=== PATIENT | female | born 1930 | race Caucasian/White ===

== ENCOUNTER → 2017-07-02 | Outpatient (CLI) | payer MEDICARE | END | disposition home or self-care (01) | LOC: PNCL 08:26 | DX: M79.604 Pain in right leg (principal); M25.551 Pain in right hip; M81.0 Age-related osteoporosis without current pathological fracture; R06.02 Shortness of breath; Z96.653 Presence of artificial knee joint, bilateral; Z79.01 Long term (current) use of anticoagulants; Z90.710 Acquired absence of both cervix and uterus | CPT/HCPCS: G0463 ==

== ENCOUNTER 2017-07-19 20:47 | Emergency (ER) | payer MEDICARE ==
[2017-07-19 21:49] LABS: ADD MAN DIFF? NO
[2017-07-19 21:52] LABS: BASO # 0.1 x10^3/uL (0.0-0.2); BASO % 1 % (0-3); EOS # 0.3 x10^3/uL (0.0-0.7); EOS % 2 % (0-3); HEMATOCRIT 33.8 % (36.0-47.0); LYMPH # 2.3 x10^3/uL (1.0-4.8); LYMPH % 17 % (24-48); MEAN CORPUSCULAR HEMOGLOBIN 25 pg (25-35); MEAN CORPUSCULAR HGB CONC 33 g/dL (31-37); MEAN CORPUSCULAR VOLUME 78 fL (79-100); MONO # 0.7 x10^3/uL (0.0-1.1); MONO % 5 % (0-9); NEUT # 10.2 x10^3uL (1.8-7.7); NEUT % 75 % (31-73); PLATELET COUNT 223 x10^3/uL (140-400); RED BLOOD COUNT 4.33 x10^6/uL (3.50-5.40); WHITE BLOOD COUNT 13.5 x10^3/uL (4.0-11.0)
[2017-07-19 22:00] LABS: INR 1.1 (0.8-1.1); PROTHROMBIN TIME PATIENT 13.7 SEC (11.7-14.0)
[2017-07-19 22:02] LABS: ANION GAP 9 (6-14); BLOOD UREA NITROGEN 13 mg/dL (7-20); BUN/CREATININE RATIO 13 (6-20); CALCIUM 9.2 mg/dL (8.5-10.1); CARBON DIOXIDE 28 mmol/L (21-32); CHLORIDE 102 mmol/L (98-107); GFR 52.7; GLUCOSE 112 mg/dL (70-99); POTASSIUM 3.6 mmol/L (3.5-5.1); SODIUM 139 mmol/L (136-145)
[2017-07-19 22:04] LABS: D-DIMER 0.31 ug/mlFEU (0.00-0.50)
[2017-07-19 22:07] LABS: ALBUMIN 3.4 g/dL (3.4-5.0); ALK PHOS 73 U/L (46-116); ALT (SGPT) 18 U/L (14-59); AST (SGOT) 16 U/L (15-37); LIPASE 92 U/L (73-393); MAGNESIUM 2.1 mg/dL (1.8-2.4); TOTAL BILIRUBIN 0.5 mg/dL (0.2-1.0); TOTAL PROTEIN 6.9 g/dL (6.4-8.2)
[2017-07-19 22:14] LABS: TROPONINI < 0.017 ng/mL (0.000-0.055)
[2017-07-19 22:15] LABS: THYROID STIM HORMONE (TSH) 1.287 uIU/mL (0.358-3.74)
[2017-07-19 22:16] LABS: CKMB MASS < 0.5 ng/mL (0.0-3.6); CREATINE KINASE 68 U/L (26-192)
[2017-07-19 22:16] LABS: NT-PRO BNP 34 pg/mL (0-449)
[2017-07-19 22:43] LABS: BILIRUBIN,URINE NEGATIVE (NEG); CLARITY,URINE CLEAR; COLOR,URINE YELLOW; GLUCOSE,URINE NEGATIVE (NEG); NITRITE,URINE NEGATIVE (NEG); PH,URINE 7.5; PROTEIN,URINE NEGATIVE (NEG-TRACE); UROBILINOGEN,URINE 0.2 mg/dL (0.2 mg/dL)
[2017-07-19 22:52] LABS: AMORPHOUS SEDIMENT,UR PRESENT /HPF; BACTERIA,URINE MANY /HPF (0-FEW); SQUAMOUS EPITHELIAL CELL,UR FEW /LPF
== END 2017-07-19 23:14 | disposition home or self-care (01) ==
LOC: ER 20:47
DX: R06.00 Dyspnea, unspecified (principal); I11.0 Hypertensive heart disease with heart failure; I50.9 Heart failure, unspecified; I48.91 Unspecified atrial fibrillation; J44.9 Chronic obstructive pulmonary disease, unspecified
CPT/HCPCS: 36415; 71045; 80053; 81001; 82553; 83690; 83735; 83880; 84443; 84484; 85025; 85379; 85610; 93005; 96374; 99285-25; J2060

== ENCOUNTER 2017-07-25 06:59 | Inpatient (IN) | payer MEDICARE ==
[2017-07-25] MEDS: ASPIRIN 325 MG TABLET PO (07:31)
[2017-07-25 07:41] LABS: ADD MAN DIFF? NO
[2017-07-25 07:43] LABS: BASO # 0.1 x10^3/uL (0.0-0.2); BASO % 1 % (0-3); EOS # 0.2 x10^3/uL (0.0-0.7); EOS % 2 % (0-3); HEMATOCRIT 32.1 % (36.0-47.0); HEMOGLOBIN 10.7 g/dL (12.0-15.5); LYMPH # 1.5 x10^3/uL (1.0-4.8); LYMPH % 19 % (24-48); MEAN CORPUSCULAR HEMOGLOBIN 26 pg (25-35); MEAN CORPUSCULAR HGB CONC 33 g/dL (31-37); MEAN CORPUSCULAR VOLUME 78 fL (79-100); MONO # 0.4 x10^3/uL (0.0-1.1); MONO % 5 % (0-9); NEUT # 5.8 x10^3uL (1.8-7.7); NEUT % 74 % (31-73); PLATELET COUNT 216 x10^3/uL (140-400); RED BLOOD COUNT 4.11 x10^6/uL (3.50-5.40); RED CELL DISTRIBUTION WIDTH 18.1 % (11.5-14.5); WHITE BLOOD COUNT 7.8 x10^3/uL (4.0-11.0)
[2017-07-25 07:46] LABS: BILIRUBIN,URINE NEGATIVE (NEG); CLARITY,URINE CLEAR; COLOR,URINE YELLOW; GLUCOSE,URINE NEGATIVE (NEG); NITRITE,URINE NEGATIVE (NEG); PH,URINE 7.5; PROTEIN,URINE NEGATIVE (NEG-TRACE); UROBILINOGEN,URINE 0.2 mg/dL (0.2 mg/dL)
[2017-07-25 07:52] LABS: INR 1.2 (0.8-1.1); PROTHROMBIN TIME PATIENT 14.8 SEC (11.7-14.0)
[2017-07-25 07:55] LABS: BACTERIA,URINE 0 /HPF (0-FEW); RBC,URINE 0 /HPF (0-2); SQUAMOUS EPITHELIAL CELL,UR MOD /LPF; WBC,URINE OCC /HPF (0-4)
[2017-07-25 08:02] LABS: ANION GAP 11 (6-14); BLOOD UREA NITROGEN 10 mg/dL (7-20); BUN/CREATININE RATIO 13 (6-20); CALCIUM 8.9 mg/dL (8.5-10.1); CARBON DIOXIDE 26 mmol/L (21-32); CHLORIDE 103 mmol/L (98-107); CREATININE 0.8 mg/dL (0.6-1.0); GFR 68.2; GLUCOSE 103 mg/dL (70-99); POTASSIUM 3.9 mmol/L (3.5-5.1); SODIUM 140 mmol/L (136-145)
[2017-07-25 08:03] LABS: TROPONINI < 0.017 ng/mL (0.000-0.055)
[2017-07-25 08:06] LABS: ALBUMIN 3.4 g/dL (3.4-5.0); ALBUMIN/GLOBULIN RATIO 1.1 (1.0-1.7); ALK PHOS 82 U/L (46-116); ALT (SGPT) 17 U/L (14-59); AST (SGOT) 14 U/L (15-37); LIPASE 70 U/L (73-393); MAGNESIUM 2.1 mg/dL (1.8-2.4); TOTAL BILIRUBIN 0.5 mg/dL (0.2-1.0); TOTAL PROTEIN 6.5 g/dL (6.4-8.2)
[2017-07-25 08:08] LABS: THYROID STIM HORMONE (TSH) 1.249 uIU/mL (0.358-3.74)
[2017-07-25 08:13] LABS: CKMB MASS < 0.5 ng/mL (0.0-3.6); CREATINE KINASE 44 U/L (26-192)
[2017-07-25 08:13] LABS: NT-PRO BNP 45 pg/mL (0-449)
[2017-07-25] MEDS ORDERED: ALBUTEROL SULFATE 2.5 MG/3 ML NEBU. NEB ×2 (12:15→18:00)
[2017-07-25 12:16] LABS: TROPONINI < 0.017 ng/mL (0.000-0.055)
[2017-07-25] MEDS: METOPROLOL SUCC 24HR ER 50 MG TAB.ER.24H. PO (14:22)
[2017-07-25] MEDS ORDERED: DOCUSATE SODIUM 100 MG CAPSULE. PO (15:00)
[2017-07-25] MEDS ORDERED: hydrALAZINE 20 MG/ML VIAL. IVP (15:00)
[2017-07-25] MEDS ORDERED: MORPHINE SULFATE 4 MG/ML DISP.SYRIN. IV (15:30)
[2017-07-25] MEDS: IPRATRPIUM/ALBUTEROL 0.5/2.5MG 3 ML NEBU. NEB ×2 (15:34→19:37)
[2017-07-25] MEDS: BUDESONIDE 0.5 MG/2 ML NEBU. NEB (19:37)
[2017-07-25] MEDS ORDERED: APIXABAN 2.5 MG TABLET. PO (21:00)
[2017-07-26 04:05] LABS: ADD MAN DIFF? NO
[2017-07-26 04:13] LABS: BASO # 0.1 x10^3/uL (0.0-0.2); BASO % 1 % (0-3); EOS # 0.3 x10^3/uL (0.0-0.7); EOS % 4 % (0-3); HEMATOCRIT 31.2 % (36.0-47.0); HEMOGLOBIN 10.2 g/dL (12.0-15.5); LYMPH # 1.6 x10^3/uL (1.0-4.8); LYMPH % 21 % (24-48); MEAN CORPUSCULAR HEMOGLOBIN 26 pg (25-35); MEAN CORPUSCULAR HGB CONC 33 g/dL (31-37); MEAN CORPUSCULAR VOLUME 79 fL (79-100); MONO # 0.4 x10^3/uL (0.0-1.1); MONO % 5 % (0-9); NEUT # 5.4 x10^3uL (1.8-7.7); NEUT % 69 % (31-73); PLATELET COUNT 211 x10^3/uL (140-400); RED BLOOD COUNT 3.96 x10^6/uL (3.50-5.40); WHITE BLOOD COUNT 7.7 x10^3/uL (4.0-11.0)
[2017-07-26 04:37] LABS: ANION GAP 7 (6-14); BLOOD UREA NITROGEN 12 mg/dL (7-20); CALCIUM 8.9 mg/dL (8.5-10.1); CARBON DIOXIDE 27 mmol/L (21-32); CHLORIDE 106 mmol/L (98-107); CREATININE 0.9 mg/dL (0.6-1.0); GFR 59.5; GLUCOSE 97 mg/dL (70-99); SODIUM 140 mmol/L (136-145)
[2017-07-26] MEDS: BUDESONIDE 0.5 MG/2 ML NEBU. NEB ×2 (08:07→20:35)
[2017-07-26] MEDS: IPRATRPIUM/ALBUTEROL 0.5/2.5MG 3 ML NEBU. NEB ×4 (08:07→20:35)
[2017-07-26] MEDS: METOPROLOL SUCC 24HR ER 50 MG TAB.ER.24H. PO (08:45)
[2017-07-26] MEDS: CHOLECALCIFEROL (VITAMIN D3) 1,000 UNIT TABLET PO (08:46)
[2017-07-26] MEDS: ASPIRIN ENTERIC COATED 81 MG TABLET.DR. PO (08:46)
[2017-07-26] MEDS: ONDANSETRON PF 4 MG/2 ML VIAL. IV (08:53)
[2017-07-26] MEDS ORDERED: METOPROLOL SUCC 24HR ER 25 MG TAB.ER.24H. PO (09:00)
[2017-07-26] MEDS ORDERED: ASPIRIN ENTERIC COATED 81 MG TABLET.DR. PO (09:00)
[2017-07-26] MEDS ORDERED: NON FORMULARY ITEM (Fluticasone/Vilanterol (Breo Ellipta 100-25 Mcg Inh) 1 PUFF) IH (09:00)
[2017-07-26] MEDS ORDERED: NON FORMULARY ITEM (Aclidinium Bromide (Tudorza Pressair) 400 MCG) IH (09:00)
[2017-07-26] MEDS: ACETAMINOPHEN 325 MG TABLET. PO (11:47)
[2017-07-26] MEDS ORDERED: MORPHINE SULFATE 2 MG/ML DISP.SYRIN. IV (13:18)
[2017-07-26] MEDS: LORazepam 0.5 MG TABLET PO (18:14)
[2017-07-26] MEDS: ALBUTEROL SULFATE 2.5 MG/3 ML NEBU. NEB (18:14)
[2017-07-27] MEDS: IPRATRPIUM/ALBUTEROL 0.5/2.5MG 3 ML NEBU. NEB ×4 (07:46→21:05)
[2017-07-27] MEDS: BUDESONIDE 0.5 MG/2 ML NEBU. NEB ×2 (07:46→21:05)
[2017-07-27] MEDS: METOPROLOL SUCC 24HR ER 50 MG TAB.ER.24H. PO (08:25)
[2017-07-27] MEDS: LORazepam 0.5 MG TABLET PO ×2 (08:25→17:39)
[2017-07-27] MEDS: methylPREDNISolone SOD SUCC PF 125 MG/2 ML VIAL. IV (09:40)
[2017-07-27] MEDS ORDERED: IODIXANOL 320 MG/ML 100 ML VIAL. (11:02)
[2017-07-27] MEDS ORDERED: LIDOCAINE 2% 20 ML VIAL. (11:02)
[2017-07-27] MEDS ORDERED: fentaNYL PF VIAL 100 MCG/2 ML VIAL (11:21)
[2017-07-27] MEDS ORDERED: MIDAZOLAM HCL/PF 2 MG/2 ML VIAL. (11:21)
[2017-07-27] MEDS: methylPREDNISolone SOD SUCC PF 40 MG/ML VIAL. IV ×2 (11:30→21:32)
[2017-07-27] MEDS: LIDOCAINE 2% 20 ML VIAL. IJ (12:12)
[2017-07-27] MEDS: IODIXANOL 320 MG/ML 100 ML VIAL. IART (12:12)
[2017-07-27] MEDS: MIDAZOLAM HCL/PF 2 MG/2 ML VIAL. IV (12:13)
[2017-07-27] MEDS: fentaNYL PF VIAL 100 MCG/2 ML VIAL IV (12:14)
[2017-07-27] MEDS: CHOLECALCIFEROL (VITAMIN D3) 1,000 UNIT TABLET PO (13:06)
[2017-07-27] MEDS: ASPIRIN ENTERIC COATED 81 MG TABLET.DR. PO (13:06)
[2017-07-28] MEDS: traMADol 50 MG TABLET PO (04:58)
[2017-07-28] MEDS: LORazepam 0.5 MG TABLET PO ×2 (05:00→17:57)
[2017-07-28] MEDS: methylPREDNISolone SOD SUCC PF 40 MG/ML VIAL. IV ×3 (06:17→21:44)
[2017-07-28] MEDS: BUDESONIDE 0.5 MG/2 ML NEBU. NEB ×2 (07:32→19:38)
[2017-07-28] MEDS: IPRATRPIUM/ALBUTEROL 0.5/2.5MG 3 ML NEBU. NEB ×4 (07:32→19:38)
[2017-07-28] MEDS: ASPIRIN ENTERIC COATED 81 MG TABLET.DR. PO (08:44)
[2017-07-28] MEDS: METOPROLOL SUCC 24HR ER 50 MG TAB.ER.24H. PO (08:44)
[2017-07-28] MEDS: CHOLECALCIFEROL (VITAMIN D3) 1,000 UNIT TABLET PO (08:44)
[2017-07-29] MEDS: BUDESONIDE 0.5 MG/2 ML NEBU. NEB (06:05)
[2017-07-29] MEDS: IPRATRPIUM/ALBUTEROL 0.5/2.5MG 3 ML NEBU. NEB ×2 (06:05→11:30)
[2017-07-29] MEDS: methylPREDNISolone SOD SUCC PF 40 MG/ML VIAL. IV (06:16)
[2017-07-29] MEDS: METOPROLOL SUCC 24HR ER 50 MG TAB.ER.24H. PO (08:06)
[2017-07-29] MEDS: CHOLECALCIFEROL (VITAMIN D3) 1,000 UNIT TABLET PO (08:07)
[2017-07-29] MEDS: ASPIRIN ENTERIC COATED 81 MG TABLET.DR. PO (08:07)
[2017-07-29] MEDS: LORazepam 0.5 MG TABLET PO (09:24)
[2017-07-29] MEDS: POTASSIUM CHLORIDE 10 MEQ TABLET.ER. PO (11:02)
[2017-07-29] MEDS: FUROSEMIDE 20 MG TABLET PO (11:02)
[2017-07-29] MEDS ORDERED: ANTI-COAG MONITOR BY PHARMACY. MC (11:45)
[2017-07-29] MEDS: APIXABAN 5 MG TABLET. PO (13:26)
== END 2017-07-29 15:32 | disposition home or self-care (01) | DRG 286 ==
LOC: ER 06:59 → 2 NORTH 08:45
PROC: B2111ZZ Fluoroscopy of Multiple Coronary Arteries using Low Osmolar Contrast (ICD-10-PCS; principal; 2017-07-27)
PROC: B2151ZZ Fluoroscopy of Left Heart using Low Osmolar Contrast (ICD-10-PCS; 2017-07-27)
PROC: 4A023N8 Measurement of Cardiac Sampling and Pressure, Bilateral, Percutaneous Approach (ICD-10-PCS; 2017-07-27)
PROC: 5A09357 Assistance with Respiratory Ventilation, Less than 24 Consecutive Hours, Continuous Positive Airway Pressure (ICD-10-PCS; 2017-07-27)
DX: I11.0 Hypertensive heart disease with heart failure (principal); J96.01 Acute respiratory failure with hypoxia; I48.0 Paroxysmal atrial fibrillation; D64.9 Anemia, unspecified; Z68.37 Body mass index [BMI] 37.0-37.9, adult; E78.5 Hyperlipidemia, unspecified; F41.9 Anxiety disorder, unspecified; G47.33 Obstructive sleep apnea (adult) (pediatric); I48.2 Chronic atrial fibrillation; J44.9 Chronic obstructive pulmonary disease, unspecified; K21.9 Gastro-esophageal reflux disease without esophagitis; Z79.82 Long term (current) use of aspirin; Z82.49 Family history of ischemic heart disease and other diseases of the circulatory system; Z86.73 Personal history of transient ischemic attack (TIA), and cerebral infarction without residual deficits; Z87.01 Personal history of pneumonia (recurrent); Z90.49 Acquired absence of other specified parts of digestive tract; Z90.710 Acquired absence of both cervix and uterus; Z96.653 Presence of artificial knee joint, bilateral; M19.90 Unspecified osteoarthritis, unspecified site; E66.01 Morbid (severe) obesity due to excess calories; I50.33 Acute on chronic diastolic (congestive) heart failure
CPT/HCPCS: 36415; 71045; 71250; 78582; 80048; 80053; 81001; 82553; 83690; 83735; 83880; 84443; 84484; 85025; 85610; 93005; 93460; 94618; 94640; 94660; 94760; 96374; 97116-GP; 97162-GP; 97165-GO; 99152; 99153; 99285; 99285-25; A9540; A9558; C1769; C1771; C1773; C1892; G0269; J1644; J2250; J2405; J2920; J2930; J3010; J7613; J7620; J7626

== ENCOUNTER → 2017-09-11 | Outpatient (CLI) | payer MEDICARE ==
[~2017-09-11] MED LIST: BUPIVACAINE MPF 0.25% 10 ML VIAL.; IOHEXOL 180 MG/ML 10 ML VIAL.; LIDOCAINE 1% PF 2 ML VIAL.; methylPREDNISolone ACETATE 80 MG/ML VIAL.
== END | disposition home or self-care (01) ==
LOC: PNCL 09:05
DX: M16.11 Unilateral primary osteoarthritis, right hip (principal); F41.9 Anxiety disorder, unspecified; I48.2 Chronic atrial fibrillation; K21.9 Gastro-esophageal reflux disease without esophagitis; I11.0 Hypertensive heart disease with heart failure; I50.33 Acute on chronic diastolic (congestive) heart failure; H40.9 Unspecified glaucoma; J44.9 Chronic obstructive pulmonary disease, unspecified; E78.5 Hyperlipidemia, unspecified; E66.01 Morbid (severe) obesity due to excess calories; Z68.34 Body mass index [BMI] 34.0-34.9, adult; G47.33 Obstructive sleep apnea (adult) (pediatric); Z90.49 Acquired absence of other specified parts of digestive tract; Z90.710 Acquired absence of both cervix and uterus; Z87.440 Personal history of urinary (tract) infections; M19.90 Unspecified osteoarthritis, unspecified site; Z85.828 Personal history of other malignant neoplasm of skin; Z82.49 Family history of ischemic heart disease and other diseases of the circulatory system; Z79.01 Long term (current) use of anticoagulants; Z79.82 Long term (current) use of aspirin; Z96.653 Presence of artificial knee joint, bilateral; Z86.73 Personal history of transient ischemic attack (TIA), and cerebral infarction without residual deficits; Z87.01 Personal history of pneumonia (recurrent); Z98.49 Cataract extraction status, unspecified eye; Z96.1 Presence of intraocular lens
CPT/HCPCS: 20610; 77002; J1040; J3490; Q9965

== ENCOUNTER → 2017-09-17 | Outpatient (CLI) | payer MEDICARE | END | disposition home or self-care (01) | LOC: RT 18:07 | DX: G47.33 Obstructive sleep apnea (adult) (pediatric) (principal) | CPT/HCPCS: 95811 ==

== ENCOUNTER → 2017-09-24 | Outpatient (CLI) | payer MEDICARE ==
[2017-08-04 10:49] VITALS: BP 116/58
[~2017-09-24] MED LIST changes: +ACLI400A2 IH; +ALPR0.254 PO; +APIX2.5T PO; +ASPI-612 PO; +BREO ELLIPTA 11 EACH IH; +BUDE180A IH; -BUPIVACAINE MPF 0.25% 10 ML VIAL.; +BUPIVACAINE MPF 0.25% 10 ML VIAL. ONE; +CALC600T4 PO; +CHOL10003 PO; +DILT120C80 PO; +FURO20TA3 PO; -IOHEXOL 180 MG/ML 10 ML VIAL.; +IOHEXOL 180 MG/ML 10 ML VIAL. ONE; +IPRA0.2S5 NEB; +IPRA3AMP29 NEB; +LIDO700A39 TD; -LIDOCAINE 1% PF 2 ML VIAL.; +LIDOCAINE 2% PF 2ML VIAL. ONE; +LORA0.5T PO; +METO-269 PO; +MONT10TA9 PO; +NITR100C62 PO; +POTA10TA12 PO; -methylPREDNISolone ACETATE 80 MG/ML VIAL.; +methylPREDNISolone ACETATE 80 MG/ML VIAL. ONE
--- NOTE | 2017-09-24 12:10 | PAIN ---
DATE OF SERVICE: 09/24/2017 PROGRESS NOTE FOR PAIN CLINIC DIAGNOSIS: Right hip joint pain with primary osteoarthritis, right hip joint. HISTORY OF PRESENT ILLNESS: The patient is an 87-year-old female who returns for followup status post right hip joint injection x 1. The patient reports only minimal decrease in pain for about a day or two after the injection. The patient reports the pain returned fairly quickly in the right hip and groin, worse with walking, standing, change in positions weightbearing long her right leg, especially stepping up on a curb or stairs. The patient reports it is tingling, burning, stabbing, aching, sharp, radiating and becoming more severe, more unbearable and rates it as a 10 on a scale of 10 at all times, worst, average and is at least and is a 10 today. The patient reports it does not awaken her from sleep at night; however, she is not weightbearing and the pain is almost completely gone. The patient reports she sleeps well at night, does not awaken her from sleep. Reports no new motor or sensory deficits or other complaints. PHYSICAL EXAMINATION: VITAL SIGNS: The patient's blood pressure 147/75, pulse 71, respirations 18, temperature 98.1 degrees Fahrenheit, height is 5 feet 1 inch and weight is 187 pounds. GENERAL: The patient is awake, alert, oriented, appropriate and very pleasant demeanor. HEENT: Head shows normocephalic and atraumatic. Extraocular movements intact and symmetrical. Oral cavity: Mucous membranes moist and pink. Dentition is intact. NECK: Shows anterior throat supple without palpable lymphadenopathy noted. Swallow reflex is symmetrical. CHEST: Shows normal on inspection. Breath sounds clear to auscultation bilaterally. HEART: Shows S1 and S2 clear. No murmurs auscultated. ABDOMEN: Soft, nontender and nondistended. No palpable organomegaly is noted. No rebound or guarding demonstrated. BACK: Shows spine grossly in the midline. Slight exaggeration of the thoracic kyphosis and some minor flattening of the lumbar lordotic curvature. Lumbar paraspinous muscle shows symmetrical but without significant tenderness. EXTREMITIES: The patient's lower extremities show deep tendon reflexes at 1+ in the patellar and tendo-calcaneus tendons. Motor exam is approximately 4 on a scale of 5 but equal and symmetrical with dorsiflexion and extension. The patient shows still some significant tenderness with external rotation of the right hip with a positive Fransico sign but only mildly. Left side is negative. Peripheral pulses are 1+ posterior tibial. No peripheral edema is noted. Options were discussed with the patient. The patient's old chart was reviewed as well as her current medication regimen updated. Current review of systems updated today as well. We will proceed with a second in this series right intraarticular hip joint injection with fluoroscopic guidance. Risks were again discussed including, but not limited to bleeding, infection, possibility of intravascular injection sequelae, spread of local anesthetic and numbness, side effects of steroid medication as well as poor results regarding pain control and exposure to fluoroscopy. The patient understands and wished to proceed. The patient will return to clinic in approximately 3 weeks. We will start her Eliquis again tomorrow. She has been off of it for 4 days prior to today's visit. Also discussed followup with her orthopedic surgeon regarding further evaluation of her hip such as MRI scan or continued physical therapy treatments in the future if not significantly improved after today's injection. The patient understands and agrees and we will follow up as scheduled. MICHELLE CARY MD DR: ROSALINA/sergio JOB#: [id number] / [id number] YAMILA Julien MD
== END | disposition home or self-care (01) ==
LOC: PNCL 09:53
PROVIDERS: ATTEND Anesthesiology
DX: M16.11 Unilateral primary osteoarthritis, right hip (principal); I48.2 Chronic atrial fibrillation; G47.33 Obstructive sleep apnea (adult) (pediatric); J44.9 Chronic obstructive pulmonary disease, unspecified; I11.0 Hypertensive heart disease with heart failure; I50.33 Acute on chronic diastolic (congestive) heart failure; F41.9 Anxiety disorder, unspecified; K21.9 Gastro-esophageal reflux disease without esophagitis; E66.01 Morbid (severe) obesity due to excess calories; Z98.49 Cataract extraction status, unspecified eye; Z96.1 Presence of intraocular lens; H40.9 Unspecified glaucoma; I69.354 Hemiplegia and hemiparesis following cerebral infarction affecting left non-dominant side; Z79.01 Long term (current) use of anticoagulants; Z90.49 Acquired absence of other specified parts of digestive tract; Z90.710 Acquired absence of both cervix and uterus; Z87.440 Personal history of urinary (tract) infections; Z85.828 Personal history of other malignant neoplasm of skin; Z82.49 Family history of ischemic heart disease and other diseases of the circulatory system; Z79.82 Long term (current) use of aspirin; Z79.899 Other long term (current) drug therapy; Z87.01 Personal history of pneumonia (recurrent)
CPT/HCPCS: 20610; 77002; J1040; J2001; J3490; Q9965

== ENCOUNTER → 2017-11-19 | Outpatient (CLI) | payer MEDICARE ==
[2017-08-04 10:49] VITALS: BP 116/58
[~2017-11-19] MED LIST changes: -BUPIVACAINE MPF 0.25% 10 ML VIAL. ONE; -IOHEXOL 180 MG/ML 10 ML VIAL. ONE; -LIDOCAINE 2% PF 2ML VIAL. ONE; -methylPREDNISolone ACETATE 80 MG/ML VIAL. ONE
[2017-11-19 09:03] LABS: BASO # 0.1 x10^3/uL (0.0-0.2); BASO % 1 % (0-3); EOS # 0.4 x10^3/uL (0.0-0.7); EOS % 5 % (0-3); HEMATOCRIT 35.1 % (36.0-47.0); HEMOGLOBIN 11.1 g/dL (12.0-15.5); LYMPH # 2.2 x10^3/uL (1.0-4.8); LYMPH % 27 % (24-48); MEAN CORPUSCULAR HEMOGLOBIN 24 pg (25-35); MEAN CORPUSCULAR HGB CONC 32 g/dL (31-37); MEAN CORPUSCULAR VOLUME 75 fL (79-100); MONO # 0.4 x10^3/uL (0.0-1.1); MONO % 5 % (0-9); NEUT % 62 % (31-73); PLATELET COUNT 239 x10^3/uL (140-400); RED BLOOD COUNT 4.69 x10^6/uL (3.50-5.40); WHITE BLOOD COUNT 8.1 x10^3/uL (4.0-11.0)
[2017-11-19 09:12] LABS: ALBUMIN 3.2 g/dL (3.4-5.0); CREATININE 0.8 mg/dL (0.6-1.0); GFR 68.2; POTASSIUM 4.3 mmol/L (3.5-5.1)
[2017-11-19 09:19] LABS: PROTHROMBIN TIME PATIENT 15.1 SEC (11.7-14.0)
[2017-11-19 12:16] LABS: BILIRUBIN,URINE NEGATIVE (NEG); CLARITY,URINE CLEAR; COLOR,URINE YELLOW; NITRITE,URINE NEGATIVE (NEG); PH,URINE 7.5; PROTEIN,URINE NEGATIVE (NEG-TRACE); UROBILINOGEN,URINE 0.2 mg/dL (0.2 mg/dL)
[2017-11-19 12:30] LABS: BACTERIA,URINE 0 /HPF (0-FEW); RBC,URINE 0 /HPF (0-2); SQUAMOUS EPITHELIAL CELL,UR FEW /LPF; WBC,URINE 0 /HPF (0-4)
== END | disposition home or self-care (01) ==
LOC: SURGPAT 12:22
PROVIDERS: ATTEND Orthopaedic Surgery
DX: Z01.818 Encounter for other preprocedural examination (principal); M16.11 Unilateral primary osteoarthritis, right hip; I11.0 Hypertensive heart disease with heart failure; I50.9 Heart failure, unspecified; J44.9 Chronic obstructive pulmonary disease, unspecified; I48.0 Paroxysmal atrial fibrillation; Z96.653 Presence of artificial knee joint, bilateral
CPT/HCPCS: 36415; 80048; 81001; 82040; 85025; 85610; 85651; 85730; 87641

== ENCOUNTER → 2017-11-30 | Outpatient (CLI) | payer MEDICARE ==
[2017-08-04 10:49] VITALS: BP 116/58
[~2017-11-30] MED LIST changes: +APIX5TAB PO; +BIMA2.5D EACHEYE; +CYCL1DRO EACHEYE; +ESCITALOPRAM OXA5 M1 PO; +MELO15TA23 PO; +TRAM50TA PO; +WARF-31 PO; +XOPENEX0.63 MG/3 NEB
--- NOTE | 2017-11-30 16:01 | RAD ---
Chest, 2 views, 11/30/2017: HISTORY: Preop evaluation Comparison is made to a study from 08/02/2017. The heart size is normal. There is mild tortuosity of the thoracic aorta. No pulmonary infiltrate is seen. There is no evidence of pleural fluid. Moderate spurring is present in the spine. IMPRESSION: No acute cardiopulmonary abnormality is detected. Electronically signed by: Jimbo Blandon MD (11/30/2017 3:58 PM) [facility]
== END | disposition home or self-care (01) ==
LOC: RAD 11:18
PROVIDERS: ATTEND Internal Medicine Pulmonary Disease
DX: Z01.818 Encounter for other preprocedural examination (principal); M46.04 Spinal enthesopathy, thoracic region
CPT/HCPCS: 71046

== ENCOUNTER 2017-12-04 06:57 | Inpatient (IN) | payer MEDICARE ==
[~2017-12-04] VITALS: Ht 154.9 cm; Wt 83.9 kg
[2017-12-04] VITALS (7 sets, daily range): BP systolic 108–144; BP diastolic 52–79
[~2017-12-04 06:57] MED LIST changes: +ACETAMINOPHEN 500 MG TABLET PO PRN; -MELO15TA23 PO; +MELOXICAM 7.5 MG TABLET PO PRN; +MORPHINE SULFATE 5 MG, KETOROLAC 30MG VIAL 30 MG, ROPIVacaine 0.5% PF 60 ML, EPINEPHrin... INT ART ONE; +TRANEXAMIC ACID 1,000 MG in IV NS 50ML -- 1ST BAG INJ ONE; -WARF-31 PO
[2017-12-04] MEDS ORDERED: HYDROmorphone 2 MG/ML VIAL IV PRN (07:00)
[2017-12-04] MEDS ORDERED: ONDANSETRON PF 4 MG/2 ML VIAL. IV PRN (07:00)
[2017-12-04] MEDS ORDERED: PROCHLORPERAZINE 10 MG/2 ML VIAL. IV PRN ×2 (07:00→15:15)
[2017-12-04] MEDS ORDERED: fentaNYL PF VIAL 100 MCG/2 ML VIAL IV PRN ×3 (07:00→15:15)
[2017-12-04] MEDS ORDERED: LIDOCAINE 1% PF 2 ML VIAL. ID PRN (07:00)
[2017-12-04] MEDS ORDERED: IV RINGERS,LACTATED 1000ML 1,000 ML IV SCH (07:00)
[2017-12-04] MEDS ORDERED: MELO15TA23 PO (07:28)
[2017-12-04] MEDS ORDERED: WARF-31 PO (07:29)
[2017-12-04 07:58] LABS: PROTHROMBIN TIME PATIENT 13.8 SEC (11.7-14.0)
[2017-12-04] MEDS ORDERED: TRANEXAMIC ACID 1,000 MG in IV NS 50ML -- 2ND BAG INJ ONE (08:00)
[2017-12-04] MEDS ORDERED: fentaNYL PF VIAL 250 MCG/5 ML VIAL ONE (11:41)
[2017-12-04] MEDS ORDERED: DEXAMETHASONE SOD PHOS 20 MG/5 ML VIAL. ONE (11:41)
[2017-12-04] MEDS ORDERED: PROPOFOL 20 ML IV ONE (11:41)
[2017-12-04] MEDS ORDERED: ONDANSETRON PF 4 MG/2 ML VIAL. ONE ×2 (11:42)
[2017-12-04] MEDS ORDERED: LIDOCAINE 2% PF Vial for OR 5 ML VIAL. ONE (11:42)
[2017-12-04] MEDS ORDERED: ROCURONIUM 50 MG/5 ML VIAL. ONE (12:50)
--- NOTE | 2017-12-04 13:09 | HP ---
ADMIT DATE: 12/04/2017 CHIEF COMPLAINT: Right hip pain. HISTORY OF PRESENT ILLNESS: The patient is an 87-year-old female that I had previously treated for right hip pain. She had gotten some partial relief from trochanteric bursal injection, but subsequently to getting that relief, complained of more advancing of right groin pain. She subsequently has had a total of 2 injections under x-ray at the pain clinic and probably got a couple hours relief from the first of the 2 injections. She does not recall any relief from the second injection. We had previously talked about total hip arthroplasty if she does not get adequate relief from the injections. She is extremely limited in terms of her activities of daily living due to her pain and wishes to have more definitive treatment. She was subsequently evaluated from a cardiac standpoint by Dr. Werner and put her through some cardiac evaluation, cleared her for surgery. She does have a history of stroke about 3 years ago and atrial fibrillation for which she is on Eliquis that was stopped as directed prior to the procedure. PAST MEDICAL HISTORY: Significant for atrial fibrillation; orthopnea; sleep apnea, on CPAP; pulmonary nodules. PAST SURGICAL HISTORY: Bilateral knee replacement, neck surgery, carpal tunnel surgery and skin cancer removal from her left arm. FAMILY HISTORY: She denies any family history. SOCIAL HISTORY: Denies smoking, alcohol or drug use. MEDICATIONS: List is reviewed. ALLERGIES: She has no known drug allergies. REVIEW OF SYSTEMS: Really her only medical issue was that she was having some difficulty with sleep and oxygenation and her settings were changed on her CPAP machine recently, which seemed to resolve a lot of those issues. Her Eliquis was discontinued as planned based on her cardiac surgeon's recommendations. PHYSICAL EXAMINATION: VITAL SIGNS: Per admission sheet. HEENT: Atraumatic, normocephalic. HEART: Irregularly irregular. LUNGS: Clear to auscultation bilaterally. ABDOMEN: Benign. EXTREMITIES: Examination of the right hip reveals decreased range of motion in all planes, pain on her already limited range of motion which does reproduce her groin pain. She has normal examination of the contralateral hip, well-healed incisions over both knees. Good alignment, stability of bilateral knees and ankles with intact motor function, distal pulses, sensation, reflexes and skin in both lower extremities throughout. IMAGING: X-rays of the right hip show some mild degenerative change. MRI recent of the right hip shows significant findings of mid stage avascular necrosis. 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 TREATMENT PLAN: I had gone over with her previously the possibility of total hip arthroplasty. Risks, benefits, postoperative course, the possibility of infection, leg length inequality, instability, nerve or blood vessel damage, medical or other anesthetic complications among others. All her questions were answered and she wishes to proceed with surgical evaluation and treatment, which will include [facility] admission to follow as well as restarting her Eliquis. YAMILA JONES MD DR: WHITLEY/sergio JOB#: [id number] / [id number]
[2017-12-04] MEDS ORDERED: GLYCOPYRROLATE 1 MG/5 ML VIAL. ONE (14:39)
[2017-12-04] MEDS ORDERED: NEOSTIGMINE METHYLSULFATE 5 MG/5 ML SYRINGE. ONE (14:39)
[2017-12-04] MEDS ORDERED: SEVOFLURANE > 120 MINUTES. IH ONE (14:44)
[2017-12-04] MEDS ORDERED: fentaNYL PF VIAL 100 MCG/2 ML VIAL ONE (15:11)
[2017-12-04] MEDS ORDERED: IV DEXTROSE 5 %-0.45 % NACL 1,000 ML IV SCH (15:13)
[2017-12-04] MEDS ORDERED: oxyCODONE/APAP 5/325 1 TAB TABLET PO PRN (15:15)
[2017-12-04] MEDS ORDERED: oxyCODONE/APAP 7.5/325 1 TAB TABLET PO PRN (15:15)
[2017-12-04] MEDS ORDERED: HYDROcodone/APAP 10/325 1 TAB TABLET PO PRN (15:15)
[2017-12-04] MEDS ORDERED: MORPHINE SULFATE 4 MG/ML VIAL. IV PRN (15:15)
[2017-12-04] MEDS ORDERED: traMADol 50 MG TABLET PO PRN ×2 (15:15)
[2017-12-04] MEDS ORDERED: ZOLPIDEM 5 MG TABLET. PO PRN (15:15)
[2017-12-04] MEDS ORDERED: CALCIUM CARBONATE 500 MG TAB.CHEW PO PRN (15:15)
[2017-12-04] MEDS ORDERED: DEXTROSE 50% 25 GM / 50ML DISP.SYRIN. IV PRN (15:15)
[2017-12-04] MEDS ORDERED: ACETAMINOPHEN 325 MG TABLET. PO PRN (15:15)
[2017-12-04] MEDS ORDERED: MORPHINE SULFATE 2 MG/ML VIAL. IV PRN (15:15)
[2017-12-04] MEDS ORDERED: 0.9 % SODIUM CHLORIDE 10 ML DISP.SYRIN. IV PRN (15:15)
[2017-12-04] MEDS: fentaNYL PF VIAL 100 MCG/2 ML VIAL IV PRN ×4 (15:17→16:04)
[2017-12-04] MEDS ORDERED: MORPHINE SULFATE 2 MG/ML VIAL. ONE (15:27)
[2017-12-04] MEDS: MORPHINE SULFATE 2 MG/ML VIAL. IV PRN ×2 (15:30→15:43)
--- NOTE | 2017-12-04 16:19 | RAD ---
AP view of the pelvis Clinical indications: Postoperative study. FINDINGS: Total right hip arthroplasty is evident which is well aligned in this AP projection. The femoral stem is located centrally within the intramedullary canal of the proximal right femur. No acute fracture or osteolytic process is seen. IMPRESSION: Right hip arthroplasty. Electronically signed by: Carlos Vigil MD (12/04/2017 4:16 PM) [facility]
[2017-12-04] MEDS ORDERED: WARFARIN 7.5 MG TABLET. PO ONE (16:46)
[2017-12-04] MEDS: KETOROLAC 30MG VIAL 30 MG, BUPIVACAINE MPF 0.25% 20 ML, EPINEPHrine 0.5 MG in TOTAL VOL... INT ART SCH (18:04)
[2017-12-04] MEDS: HYDROcodone/APAP 7.5/325MG 1 TAB TABLET PO PRN (18:06)
[2017-12-04] MEDS: CELECOXIB 100 MG CAPSULE. PO SCH (21:27)
--- NOTE | 2017-12-04 23:57 | PDOC4 ---
Operative Note Operative Note Date of surgery: 12/04/2017 Preoperative diagnosis: Degenerative joint disease right hip Postoperative diagnosis: Same Operative procedure: Right total hip arthroplasty Surgeon: Nadir Assist: Perico parra Anesthesia: Gen. Estimated blood loss: 200 mL Complications: Calcar area split treated by cable reinforcement Specimens: Femoral head to pathology Operative indications: Estephania is an 87-year-old female whose clinical history is summarized in my clinical notes and preoperative history and physical. I had previously gone over with her and reviewed today risks benefits postoperative course of total hip arthroplasty including the possibility of infection leg length inequality instability premature wear or loosening nerve or blood vessel damage medical or other anesthetic complications among others. All her questions were answered consent was obtained and she agrees to proceed with operative evaluation and treatment Operative text: Patient was identified procedure verified patient placed in the supine position on the operating table. After adequate amounts of general anesthesia were administered she was placed decubitus position right side up using the Stulberg hip positioner and all bony prominences were well-padded and the right hip was prepped and draped in standard sterile fashion. After timeout was performed patient procedure identified and verified, a curvilinear incision was made over the greater trochanter anesthetic posterior approach carried out to the right hip iliotibial band and gluteal fascia were split in line with their fibers Charnley retractor was placed external rotators were divided from their insertion hip capsule was split in a T fashion and the hip was dislocated femoral neck cut was made using the cutting guide femoral head was sent to pathology and sized at approximately a 41 mm diameter. Acetabulum was exposed labrum and fovea were removed and successive size reaming carried up to a size 46. The edge was lightly reamed with a 47 and a 48 mm outer diameter hemispherical coated 3-hole cup was impacted in place in proper version and inclination with a single screw placed superiorly for additional fixation. A standard 32 mm inner diameter liner was impacted into place femur was then prepared by successive size reaming and broaching up to a size 12 standard offset synergy broach which was trial fit with a +0 stem and had excellent reproduction of leg length and stability. Trial components were removed thorough irrigation carried out normal saline solution and as the porous coated size 12 regular offset Synergy stem was being impacted a small longitudinal crack was noted to develop in the calcar area and a [place]ika cable plate was tensioned around the calcar area to reinforce and neutralize the hoop stresses area did a +0 32 mm cobalt chromium femoral head was impacted into place the hip was reduced and again excellent reproduction of leg length offset and stability were noted throughout. Hip capsule was repaired with #5 Ethibond suture external rotators were reattached transosseously with #5 Ethibond. Intra- articular pain mixture was injected around the joint capsule areas and subcutaneous tissues pain catheter and Hemovac drain were placed fascia was closed with #1 PDS strata fix suture subcutaneous closure with buried Vicryl suture skin closure with 3-0 Monocryl strata fix suture. A alondra drain was placed patient was returned recovery room in stable condition having tolerated procedure well. Winston maderafirst mate was present for the procedure assisted in prepping draping positioning retraction and skin closure YAMILA JONES MD Dec 04, 2017 23:57
[2017-12-05] MEDS: HYDROcodone/APAP 7.5/325MG 1 TAB TABLET PO PRN ×4 (01:16→21:36)
[2017-12-05 02:59] VITALS: BP 85/54
[2017-12-05 04:36] LABS: HEMOGLOBIN 8.5 g/dL (12.0-15.5)
[2017-12-05 04:42] LABS: PROTHROMBIN TIME PATIENT 15.3 SEC (11.7-14.0)
[2017-12-05] MEDS: KETOROLAC 30MG VIAL 30 MG, BUPIVACAINE MPF 0.25% 20 ML, EPINEPHrine 0.5 MG in TOTAL VOL... INT ART SCH (05:39)
[2017-12-05] MEDS ORDERED: MAGNESIUM HYDROXIDE 2,400 MG/30 ML ORAL.SUSP. PO PRN (06:00)
[2017-12-05 07:19] VITALS: BP 89/49
[2017-12-05] MEDS: FERROUS SULFATE 325 MG TABLET. PO SCH ×2 (08:43→17:06)
[2017-12-05] MEDS: SENNOSIDES/DOCUSATE 8.6/50MG TABLET. PO SCH (08:43)
[2017-12-05] MEDS: CELECOXIB 100 MG CAPSULE. PO SCH ×2 (08:43→21:36)
[2017-12-05] MEDS: MULTIVITAMIN with MINERAL TABLET. PO SCH (08:43)
[2017-12-05 09:55] VITALS: BP 97/55
[2017-12-05] MEDS ORDERED: LORazepam 0.5 MG TABLET PO PRN (10:30)
[2017-12-05 12:00] VITALS: BP 102/51
[2017-12-05] MEDS: ANTI-COAG MONITOR BY PHARMACY. MC PRN (15:49)
[2017-12-05] MEDS ORDERED: BISACODYL 10 MG SUPP.RECT. PR PRN (16:00)
[2017-12-05 17:04] VITALS: BP 132/5
[2017-12-05] MEDS: CITALOPRAM 10 MG TABLET. PO SCH (17:05)
[2017-12-05] MEDS: CALCIUM CARBONATE 500 MG TABLET PO SCH (17:06)
[2017-12-05] MEDS: METOPROLOL SUCC 24HR ER 50 MG TAB.ER.24H. PO SCH (17:08)
--- NOTE | 2017-12-05 17:09 | PDOC ---
PROGRESS NOTES Subjective Subjective Problems overnight: Doing well today pain controlled Objective Vital Signs Vital Signs Date Time Temp Pulse Resp B/P (MAP) Pulse Ox O2 Delivery O2 Flow Rate FiO2 12/05/17 15:59 Room Air 12/05/17 12:00 78 20 102/51 (68) 99 12/05/17 07:19 98.3 98.3 12/04/17 20:00 2.0 Physical Exam On exam dressing clean dry intact leg lengths equal distal neurovascular status intact Labs Laboratory Tests Test 12/04/17 07:35 12/05/17 03:45 Prothrombin Time 13.8 SEC (11.7-14.0) 15.3 SEC (11.7-14.0) Prothromb Time International Ratio 1.1 (0.8-1.1) 1.3 (0.8-1.1) Activated Partial Thromboplast Time 26 SEC (24-38) Hemoglobin 8.5 g/dL (12.0-15.5) Hematocrit 26.0 % (36.0-47.0) Mean Corpuscular Hemoglobin Concent 33 g/dL (31-37) Laboratory Tests Test 12/05/17 03:45 Hemoglobin 8.5 g/dL (12.0-15.5) Hematocrit 26.0 % (36.0-47.0) Mean Corpuscular Hemoglobin Concent 33 g/dL (31-37) Prothrombin Time 15.3 SEC (11.7-14.0) Prothromb Time International Ratio 1.3 (0.8-1.1) Assessment Assessment POD# [1], S/P [right total hip arthroplasty] Plan Plan of Care Resume Eliqius Weightbearing as tolerated standard total hip precautions Likely home with home health when medically stable YAMILA JONES MD Dec 05, 2017 17:09
[2017-12-05] MEDS: ALBUTEROL SULFATE 2.5 MG/3 ML NEBU. NEB PRN ×3 (21:18→21:25)
[2017-12-05] MEDS: cycloSPORINE 0.05% OPHTH DROPERETTE. OU SCH (21:35)
[2017-12-05] MEDS: LATANOPROST 0.005% OPHTH SOLUTION 2.5ML BOTTLE. OU SCH (21:36)
[2017-12-05] MEDS: APIXABAN 5 MG TABLET. PO SCH (21:36)
[2017-12-06 05:01] VITALS: BP 103/45
[2017-12-06] MEDS: HYDROcodone/APAP 7.5/325MG 1 TAB TABLET PO PRN ×3 (05:01→22:06)
[2017-12-06 06:40] LABS: HEMOGLOBIN 7.8 g/dL (12.0-15.5)
[2017-12-06] MEDS: SENNOSIDES/DOCUSATE 8.6/50MG TABLET. PO SCH (08:21)
[2017-12-06] MEDS: ASPIRIN ENTERIC COATED 81 MG TABLET.DR. PO SCH (08:21)
[2017-12-06] MEDS: MULTIVITAMIN with MINERAL TABLET. PO SCH (08:21)
[2017-12-06] MEDS: APIXABAN 5 MG TABLET. PO SCH ×2 (08:21→22:05)
[2017-12-06] MEDS: CITALOPRAM 10 MG TABLET. PO SCH (08:21)
[2017-12-06] MEDS: CELECOXIB 100 MG CAPSULE. PO SCH ×2 (08:21→22:05)
[2017-12-06] MEDS: cycloSPORINE 0.05% OPHTH DROPERETTE. OU SCH ×2 (08:22→22:04)
[2017-12-06] MEDS: CALCIUM CARBONATE 500 MG TABLET PO SCH (08:22)
[2017-12-06] MEDS: CHOLECALCIFEROL (VITAMIN D3) 1,000 UNIT TABLET PO SCH (08:22)
[2017-12-06] MEDS: FERROUS SULFATE 325 MG TABLET. PO SCH ×2 (08:22→16:53)
[2017-12-06 08:23] VITALS: BP 94/46
[2017-12-06] MEDS: METOPROLOL SUCC 24HR ER 50 MG TAB.ER.24H. PO SCH ×2 (08:30→16:55)
[2017-12-06] MEDS: ANTI-COAG MONITOR BY PHARMACY. MC PRN (11:09)
[2017-12-06 17:04] VITALS: BP 130/60
[2017-12-06] MEDS: LATANOPROST 0.005% OPHTH SOLUTION 2.5ML BOTTLE. OU SCH (22:06)
--- NOTE | 2017-12-06 22:06 | PDOC ---
PROGRESS NOTES Subjective Subjective Problems overnight: Resting comfortably no complaints Objective Vital Signs Vital Signs Date Time Temp Pulse Resp B/P (MAP) Pulse Ox O2 Delivery O2 Flow Rate FiO2 12/06/17 17:04 97.6 96 20 130/60 (83) 99 Room Air 97.6 12/04/17 20:00 2.0 Physical Exam Dressing clean dry intact leg lengths equal distal neurovascular status intact Labs Laboratory Tests Test 12/05/17 03:45 12/06/17 05:10 Hemoglobin 8.5 g/dL (12.0-15.5) 7.8 g/dL (12.0-15.5) Hematocrit 26.0 % (36.0-47.0) 24.0 % (36.0-47.0) Mean Corpuscular Hemoglobin Concent 33 g/dL (31-37) 33 g/dL (31-37) Prothrombin Time 15.3 SEC (11.7-14.0) Prothromb Time International Ratio 1.3 (0.8-1.1) Laboratory Tests Test 12/06/17 05:10 Hemoglobin 7.8 g/dL (12.0-15.5) Hematocrit 24.0 % (36.0-47.0) Mean Corpuscular Hemoglobin Concent 33 g/dL (31-37) Assessment Assessment POD# [2], S/P [right total hip arthroplasty] Plan Plan of Care Continue physical therapy weightbearing as tolerated standard total hip precautions Coumadin anticoagulation Anticipate home with home health on discharge YAMILA JONES MD Dec 06, 2017 22:06
[2017-12-06] MEDS ORDERED: HYDR-2766 PO (23:04)
[2017-12-07 04:31] LABS: HEMATOCRIT 22.2 % (36.0-47.0); HEMOGLOBIN 7.3 g/dL (12.0-15.5)
[2017-12-07 05:15] VITALS: BP 91/51
[2017-12-07] MEDS: FERROUS SULFATE 325 MG TABLET. PO SCH ×3 (08:07→17:55)
[2017-12-07] MEDS: CHOLECALCIFEROL (VITAMIN D3) 1,000 UNIT TABLET PO SCH (08:07)
[2017-12-07] MEDS: ASPIRIN ENTERIC COATED 81 MG TABLET.DR. PO SCH (08:08)
[2017-12-07] MEDS: SENNOSIDES/DOCUSATE 8.6/50MG TABLET. PO SCH (08:08)
[2017-12-07] MEDS: MULTIVITAMIN with MINERAL TABLET. PO SCH (08:08)
[2017-12-07] MEDS: CELECOXIB 100 MG CAPSULE. PO SCH ×2 (08:08→20:32)
[2017-12-07] MEDS: CITALOPRAM 10 MG TABLET. PO SCH (08:08)
[2017-12-07] MEDS: APIXABAN 5 MG TABLET. PO SCH ×2 (08:08→20:32)
[2017-12-07] MEDS: cycloSPORINE 0.05% OPHTH DROPERETTE. OU SCH ×2 (08:08→20:33)
[2017-12-07] MEDS: CALCIUM CARBONATE 500 MG TABLET PO SCH (08:08)
[2017-12-07] MEDS: METOPROLOL SUCC 24HR ER 50 MG TAB.ER.24H. PO SCH (09:00)
[2017-12-07] MEDS: HYDROcodone/APAP 7.5/325MG 1 TAB TABLET PO PRN (12:47)
[2017-12-07 14:14] VITALS: BP 120/62
[2017-12-07 17:38] VITALS: BP 103/52
[2017-12-07] MEDS: LATANOPROST 0.005% OPHTH SOLUTION 2.5ML BOTTLE. OU SCH (17:56)
--- NOTE | 2017-12-07 19:15 | PDOC ---
PROGRESS NOTES Subjective Subjective Problems overnight: Estephania is progressing reasonably well with physical therapy but several issues have been identified where she is going to have difficulty at home with her necessary activities of daily living. For example she cannot step up with her other leg to get over the edge of a bathtub and has some difficulty reliably getting up and down without assistance as well Objective Vital Signs Vital Signs Date Time Temp Pulse Resp B/P (MAP) Pulse Ox O2 Delivery O2 Flow Rate FiO2 12/07/17 17:38 98.9 90 20 103/52 (69) 94 Room Air 98.9 12/04/17 20:00 2.0 Physical Exam Good range of motion distal neurovascular status intact leg lengths equal dressing clean dry intact Labs Laboratory Tests Test 12/06/17 05:10 12/07/17 03:00 Hemoglobin 7.8 g/dL (12.0-15.5) 7.3 g/dL (12.0-15.5) Hematocrit 24.0 % (36.0-47.0) 22.2 % (36.0-47.0) Mean Corpuscular Hemoglobin Concent 33 g/dL (31-37) 33 g/dL (31-37) Laboratory Tests Test 12/07/17 03:00 Hemoglobin 7.3 g/dL (12.0-15.5) Hematocrit 22.2 % (36.0-47.0) Mean Corpuscular Hemoglobin Concent 33 g/dL (31-37) Assessment Assessment POD# [3], S/P [right total hip arthroplasty] Plan Plan of Care Given her difficulties in performing the necessary daily activities of living at home she is concerned with her previous plan of going home with home health as she really does not have adequate family help. After further evaluation and discussion of these issues she wants to go to a rehabilitation facility and has been accepted at [facility] for transfer at 10:00 tomorrow morning YAMILA JONES MD Dec 07, 2017 19:15
[2017-12-08] MEDS: HYDROcodone/APAP 7.5/325MG 1 TAB TABLET PO PRN ×2 (00:24→08:56)
[2017-12-08 04:56] LABS: HEMATOCRIT 22.9 % (36.0-47.0); HEMOGLOBIN 7.4 g/dL (12.0-15.5)
[2017-12-08 05:00] VITALS: BP 135/79
[2017-12-08] MEDS: FERROUS SULFATE 325 MG TABLET. PO SCH (08:49)
[2017-12-08] MEDS: cycloSPORINE 0.05% OPHTH DROPERETTE. OU SCH (08:49)
[2017-12-08 08:50] VITALS: BP 135/79
[2017-12-08] MEDS: METOPROLOL SUCC 24HR ER 50 MG TAB.ER.24H. PO SCH (08:50)
[2017-12-08] MEDS: CHOLECALCIFEROL (VITAMIN D3) 1,000 UNIT TABLET PO SCH (08:50)
[2017-12-08] MEDS: APIXABAN 5 MG TABLET. PO SCH (08:51)
[2017-12-08] MEDS: CELECOXIB 100 MG CAPSULE. PO SCH (08:51)
[2017-12-08] MEDS: MULTIVITAMIN with MINERAL TABLET. PO SCH (08:51)
[2017-12-08] MEDS: SENNOSIDES/DOCUSATE 8.6/50MG TABLET. PO SCH (08:52)
[2017-12-08] MEDS: CALCIUM CARBONATE 500 MG TABLET PO SCH (08:52)
[2017-12-08] MEDS: ASPIRIN ENTERIC COATED 81 MG TABLET.DR. PO SCH (08:52)
[2017-12-08] MEDS: CITALOPRAM 10 MG TABLET. PO SCH (08:59)
--- NOTE | 2017-12-10 15:07 | PATHOLOGY ---
[facility] Accession Number: [id number] . 01 Material submitted: . RIGHT HIP BONE AND SOFT TISSUE . 01 Clinical history: . Degenerative joint disease . 02 Diagnosis: Femoral head and segments of bone and soft tissue, right hip arthroplasty: - Degenerative arthritis with focal subarticular fibrosis and bone remodeling. LBQ/12/07/2017 . 02 Comment: There is no evidence of malignancy. (JPM/db; 12/07/17) . 02 Electronically signed: . Marck Reynolds MD, Pathologist NPI- [id number] . 01 Gross description: . The specimen is received in formalin, labeled "Perico, Estephania, right hip bone and soft tissue", is a femoral head measuring 4.0 x 3.7 x 3.5 cm and attached femoral neck 1.5 cm in length by 3.8 x 2.0 cm. The articular surface is rouse-espinoza irregular with a focal area of eburnation. Peripheral osteophytes are present. Also received are multiple irregular fragment of dark brown bone and espinoza white fibrous soft tissue measuring 5.0 x 3.0 x 2.0 cm in aggregate. [employer] tissue is submitted in A1-A2 after decalcification. A1 = femoral head and femoral neck margin inked black A2 = additional fragments (SWS; 12/05/2017) SHS/SHS . 02 Pathologist provided ICD-10: M16.11 . 02 CPT . 549199, [id number] Specimen Comment: A courtesy copy of this report has been sent to Specimen Comment: [phone], . Specimen Comment: Report sent to / DR WOMACK Performed at: [address], [place], [place] [id number] MD Segun Cabrera MD Phone: [phone] Performed at: [address] [id number] MD Marck Reynolds MD Phone: [phone]
== END 2017-12-08 10:30 | DRG 470 ==
LOC: OPSVCIP 06:57 → 4 SOUTHEST 16:39 → 4 NORTH 12-07 18:34
PROVIDERS: ADMIT Orthopaedic Surgery; ATTEND Orthopaedic Surgery
PROC: 5A09357 Assistance with Respiratory Ventilation, Less than 24 Consecutive Hours, Continuous Positive Airway Pressure (ICD-10-PCS; 2017-12-04)
PROC: 0SR90JZ Replacement of Right Hip Joint with Synthetic Substitute, Open Approach (ICD-10-PCS; principal; 2017-12-04 10:15)
PROC: 5A09357 Assistance with Respiratory Ventilation, Less than 24 Consecutive Hours, Continuous Positive Airway Pressure (ICD-10-PCS; 2017-12-08)
DX: M16.11 Unilateral primary osteoarthritis, right hip (principal); M87.9 Osteonecrosis, unspecified; I48.91 Unspecified atrial fibrillation; G47.30 Sleep apnea, unspecified; Z96.653 Presence of artificial knee joint, bilateral; Z86.73 Personal history of transient ischemic attack (TIA), and cerebral infarction without residual deficits; Z79.01 Long term (current) use of anticoagulants; Z85.828 Personal history of other malignant neoplasm of skin
CPT/HCPCS: 36415; 72170; 85014; 85018; 85610; 85730; 86850; 86900; 86901; 88304; 88311; 94640; A7015; J0171; J0690; J1100; J1885; J2001; J2270; J2405; J2704; J2710; J2795; J3010; J3490; J7030; J7120; J7613; 97116; 97150; 97530; 97535

== ENCOUNTER 2018-09-28 18:58 | Emergency (ER) | payer MEDICARE ==
[~2018-09-28] VITALS: Ht 157.5 cm; Wt 77.1 kg
[~2018-09-28 18:58] MED LIST changes: -ACETAMINOPHEN 500 MG TABLET PO PRN; -ACLI400A2 IH; +ACLI400A3 IH; -DILT120C80 PO; +DILT120C85 PO; +HYDR-2769 PO; +LIDO700A21 TD; -LIDO700A39 TD; +MELO15TA23 PO; -MELOXICAM 7.5 MG TABLET PO PRN; +MONT10TA49 PO; -MONT10TA9 PO; -MORPHINE SULFATE 5 MG, KETOROLAC 30MG VIAL 30 MG, ROPIVacaine 0.5% PF 60 ML, EPINEPHrin... INT ART ONE; -TRANEXAMIC ACID 1,000 MG in IV NS 50ML -- 1ST BAG INJ ONE; +WARF-31 PO
[2018-09-28 19:00] VITALS: BP 135/79
--- NOTE | 2018-09-28 19:11 | PHYS DOC ---
Past Medical History Past Medical History: A-Fib, Anemia, Bronchitis, CHF, COPD, Hypertension, Pneumonia, UTI Past Surgical History: Appendectomy, Hysterectomy Additional Past Surgical Histo: HEART CATH 6 DAYS AGO Alcohol Use: None Drug Use: None Adult General Chief Complaint Chief Complaint: FOREIGNBODY EAR HPI HPI Patient is a 88 year old female who presents to the ED today complaining she cannot hear out of the left side of her ear for a couple days. Patient is in the ED with the daughter who states there is something in the left ear canal that noted today when patient complained she can not hear. She also states patient was diagnosed with swimmers ear infection and was started on eardrops which she has been placing in the ER without noticing this foreign object in the ear Review of Systems Review of Systems Constitutional: Denies fever or chills [] HENT: Reports foreign object in the left ear canal. Reports left ear infection. : Denies dysuria or hematuria [] Musculoskeletal: Denies back pain or joint pain [] Integument: Denies rash or skin lesions [] Neurologic: Denies headache, focal weakness or sensory changes [] All other systems were reviewed and found to be within normal limits, except as documented in this note. Allergies Allergies Allergies Coded Allergies Type Severity Reaction Last Updated Verified No Known Drug Allergies 12/04/17 No Physical Exam Physical Exam Constitutional: Well developed, well nourished, no acute distress, non-toxic appearance. [] HENT: Normocephalic, atraumatic, bilateral external ears normal, oropharynx moist, no oral exudates, nose normal. [] Left ear canal noted for white piece of foreign object which was removed with forceps by me. Left ear canal reexamined after the foreign object was removed. There is erythema in the ear canal, there is exudate in the ear canal consistent with otitis externa. Skin: Warm, dry, no erythema, no rash. [] Back: No tenderness, no CVA tenderness. [] Extremities: No tenderness, no cyanosis, no clubbing, ROM intact, no edema. [] Neurologic: Alert and oriented X 3, normal motor function, normal sensory function, no focal deficits noted. [] Psychologic: Affect normal, judgement normal, mood normal. [] Current Patient Data Vital Signs Vital Signs Date Time Temp Pulse Resp B/P (MAP) Pulse Ox O2 Delivery O2 Flow Rate FiO2 09/28/18 19:00 98.7 89 16 135/79 (97) 97 Room Air 98.7 EKG EKG [] Radiology/Procedures Radiology/Procedures [] Course & Med Decision Making Course & Med Decision Making Pertinent Labs and Imaging studies reviewed. (See chart for details) This is a 88-year-old male patient who presents to the ED today complaining of a foreign object in the left ear canal, the foreign object was a piece of toilet paper that was removed by me. She was noted to have otitis externa which she's had for a couple days, she has antibiotic eardrops at home. Patient was discharged to home. Dragon Disclaimer Dragon Disclaimer This electronic medical record was generated, in whole or in part, using a voice recognition dictation system. Departure Departure Impression: Primary Impression: Otitis externa, left Additional Impression: Ear foreign body Disposition: HOME, SELF-CARE Condition: STABLE Referrals: JAIME WOMACK MD (PCP) Follow-up with your primary care doctor next week Patient Instructions: Ear Foreign Body, [id number], Otitis Externa Additional Instructions: We removed a piece of toilet paper from your left ear canal. On examination of the ear canal you were noted to have ear infection. Please use the antibiotic eardrops provided by your primary care doctor. If you do not have this medication call the primary care doctor tomorrow and they will call in a prescription for you. Problem Qualifiers Primary Impression: Otitis externa, left Otitis externa type: swimmer's ear Chronicity: acute Qualified Codes: H60.332 - Swimmer's ear, left ear Additional Impression: Ear foreign body Encounter type: initial encounter Laterality: left Qualified Codes: T16.2XXA - Foreign body in left ear, initial encounter ROSETTE LEIVA CLASSIFICATION INSPECTOR Sep 28, 2018 19:11
== END 2018-09-28 19:20 | disposition home or self-care (01) ==
LOC: ER 18:58
DX: T16.2XXA Foreign body in left ear, initial encounter (principal); H60.332 Swimmer's ear, left ear; I48.91 Unspecified atrial fibrillation; I11.0 Hypertensive heart disease with heart failure; I50.9 Heart failure, unspecified; J44.9 Chronic obstructive pulmonary disease, unspecified; Z90.89 Acquired absence of other organs; X58.XXXA Exposure to other specified factors, initial encounter; Z90.710 Acquired absence of both cervix and uterus; Y93.89 Activity, other specified; Y92.89 Other specified places as the place of occurrence of the external cause; Y99.8 Other external cause status
CPT/HCPCS: 69200; 99284

== ENCOUNTER 2019-05-26 12:26 | Emergency (ER) | payer MEDICARE ==
[~2019-05-26] VITALS: Ht 154.9 cm; Wt 79.0 kg
[~2019-05-26 12:26] MED LIST changes: -DILT120C85 PO; +DILT120C99 PO
[2019-05-26] MEDS ORDERED: fentaNYL PF VIAL 100 MCG/2 ML VIAL IVP ONE (12:45)
[2019-05-26] MEDS ORDERED: NEOMY/BACITR/POLYMYXIN OINT PACKET. TP ONE (13:00)
--- NOTE | 2019-05-26 13:00 | PHYS DOC ---
Past Medical History Past Medical History: A-Fib, Anemia, Bronchitis, CHF, COPD, Hypertension, Pneumonia, UTI (ZAIRA KELLEY APRN) Past Surgical History: Appendectomy, Hysterectomy Additional Past Surgical Histo: heart cath (ZAIRA KELLEY APRN) Smoking Status: Never Smoker Alcohol Use: None Drug Use: None (ZAIRA KELLEY APRN) Adult General Chief Complaint Chief Complaint: MECHANICAL FALL HPI HPI Patient is a 88 year old Female who presents with states that she was stepping down off the porch and she tripped and fell. She states she thinks her knee gave out. Patient did hit her right forehead on the ground and she did try to catch herself with her right wrist. Patient now has a right wrist deformity. Patient is on Eliquis blood thinner. Patient has a history of A. fib, anemia, CHF, COPD, hypertension. (ZAIRA KELLEY APRN) Review of Systems Review of Systems Musculoskeletal: Denies back pain. Right wrist joint pain [] Integument: Bruising to right forehead, small abrasion to right elbow. denies rash or skin lesions [] All other systems were reviewed and found to be within normal limits, except as documented in this note. (ZAIRA KELLEY APRN) Current Medications Current Medications Current Medications Medications (Trade) Dose Ordered Sig/Regino Start Time Stop Time Status Last Admin Dose Admin Fentanyl Citrate (Fentanyl 2ml Vial) 75 mcg 1X ONCE 05/26/19 12:45 05/26/19 12:46 DC 05/26/19 12:55 75 MCG Neomycin/ Polymyxin/ Bacitracin (Triple Antibiotic Ointment) 1 pkt 1X ONCE 05/26/19 13:00 05/26/19 13:01 DC 05/26/19 15:49 1 PKT Propofol (Diprivan) 200 mg 1X ONCE 05/26/19 14:45 05/26/19 14:46 DC 05/26/19 15:02 200 MG (NA JUDGE DO) Allergies Allergies Allergies Coded Allergies Type Severity Reaction Last Updated Verified No Known Drug Allergies 12/04/17 No (NA JUDGE DO) Physical Exam Physical Exam Constitutional: Well developed, well nourished, no acute distress, non-toxic appearance. [] HENT: Normocephalic, atraumatic, bilateral external ears normal, oropharynx moist, no oral exudates, nose normal. [] Eyes: PERRLA, EOMI, conjunctiva normal, no discharge. [] Neck: Normal range of motion, no tenderness, supple, no stridor. [] Cardiovascular:Heart rate regular rhythm, no murmur [] Lungs & Thorax: Bilateral breath sounds clear to auscultation [] Abdomen: Bowel sounds normal, soft, no tenderness, no masses, no pulsatile m asses. [] Skin: Warm, dry, no erythema, no rash. Right elbow quarter sized abrasion. Right forehead abrasion and bruising. [] Back: No tenderness, no CVA tenderness. [] Extremities: Right wrist tenderness, no cyanosis, no clubbing, right wrist not ROM intact, right wrist 2+ edema. [] Neurologic: Alert and oriented X 3, normal motor function, normal sensory function, no focal deficits noted. [] Psychologic: Affect normal, judgement normal, mood normal. [] (ZAIRA KELLEY APRN) Current Patient Data Vital Signs Vital Signs Date Time Temp Pulse Resp B/P (MAP) Pulse Ox O2 Delivery O2 Flow Rate FiO2 05/26/19 16:32 80 16 95 05/26/19 14:55 98.2 140/66 2.0 98.2 2.0 98.2 2.0 97.9 2.0 98.5 2.0 2.0 05/26/19 13:40 Nasal Cannula (NA JUDGE DO) Lab Values Laboratory Tests Test 05/26/19 13:55 White Blood Count 7.5 x10^3/uL (4.0-11.0) Red Blood Count 4.66 x10^6/uL (3.50-5.40) Hemoglobin 10.9 g/dL (12.0-15.5) L Hematocrit 34.4 % (36.0-47.0) L Mean Corpuscular Volume 74 fL (79-100) L Mean Corpuscular Hemoglobin 23 pg (25-35) L Mean Corpuscular Hemoglobin Concent 32 g/dL (31-37) Red Cell Distribution Width 17.8 % (11.5-14.5) H Platelet Count 224 x10^3/uL (140-400) Neutrophils (%) (Auto) 80 % (31-73) H Lymphocytes (%) (Auto) 11 % (24-48) L Monocytes (%) (Auto) 7 % (0-9) Eosinophils (%) (Auto) 3 % (0-3) Basophils (%) (Auto) 1 % (0-3) Neutrophils # (Auto) 6.0 x10^3/uL (1.8-7.7) Lymphocytes # (Auto) 0.8 x10^3/uL (1.0-4.8) L Monocytes # (Auto) 0.5 x10^3/uL (0.0-1.1) Eosinophils # (Auto) 0.2 x10^3/uL (0.0-0.7) Basophils # (Auto) 0.0 x10^3/uL (0.0-0.2) Prothrombin Time 16.4 SEC (11.7-14.0) H Prothrombin Time INR 1.4 (0.8-1.1) H Sodium Level 138 mmol/L (136-145) Potassium Level 3.9 mmol/L (3.5-5.1) Chloride Level 99 mmol/L (98-107) Carbon Dioxide Level 30 mmol/L (21-32) Anion Gap 9 (6-14) Blood Urea Nitrogen 15 mg/dL (7-20) Creatinine 0.8 mg/dL (0.6-1.0) Estimated GFR (Cockcroft-Gault) 68.0 BUN/Creatinine Ratio 19 (6-20) Glucose Level 112 mg/dL (70-99) H Calcium Level 8.8 mg/dL (8.5-10.1) Total Bilirubin 0.4 mg/dL (0.2-1.0) Aspartate Amino Transferase (AST) 14 U/L (15-37) L Alanine Aminotransferase (ALT) 15 U/L (14-59) Alkaline Phosphatase 68 U/L (46-116) Total Protein 7.0 g/dL (6.4-8.2) Albumin 2.9 g/dL (3.4-5.0) L Albumin/Globulin Ratio 0.7 (1.0-1.7) L Laboratory Tests 05/26/19 13:55 Laboratory Tests 05/26/19 13:55 (NA JUDGE DO) Lab Values Laboratory Tests Test 05/26/19 13:55 White Blood Count 7.5 x10^3/uL (4.0-11.0) Red Blood Count 4.66 x10^6/uL (3.50-5.40) Hemoglobin 10.9 g/dL (12.0-15.5) L Hematocrit 34.4 % (36.0-47.0) L Mean Corpuscular Volume 74 fL (79-100) L Mean Corpuscular Hemoglobin 23 pg (25-35) L Mean Corpuscular Hemoglobin Concent 32 g/dL (31-37) Red Cell Distribution Width 17.8 % (11.5-14.5) H Platelet Count 224 x10^3/uL (140-400) Neutrophils (%) (Auto) 80 % (31-73) H Lymphocytes (%) (Auto) 11 % (24-48) L Monocytes (%) (Auto) 7 % (0-9) Eosinophils (%) (Auto) 3 % (0-3) Basophils (%) (Auto) 1 % (0-3) Neutrophils # (Auto) 6.0 x10^3/uL (1.8-7.7) Lymphocytes # (Auto) 0.8 x10^3/uL (1.0-4.8) L Monocytes # (Auto) 0.5 x10^3/uL (0.0-1.1) Eosinophils # (Auto) 0.2 x10^3/uL (0.0-0.7) Basophils # (Auto) 0.0 x10^3/uL (0.0-0.2) Prothrombin Time 16.4 SEC (11.7-14.0) H Prothrombin Time INR 1.4 (0.8-1.1) H Sodium Level 138 mmol/L (136-145) Potassium Level 3.9 mmol/L (3.5-5.1) Chloride Level 99 mmol/L (98-107) Carbon Dioxide Level 30 mmol/L (21-32) Anion Gap 9 (6-14) Blood Urea Nitrogen 15 mg/dL (7-20) Creatinine 0.8 mg/dL (0.6-1.0) Estimated GFR (Cockcroft-Gault) 68.0 BUN/Creatinine Ratio 19 (6-20) Glucose Level 112 mg/dL (70-99) H Calcium Level 8.8 mg/dL (8.5-10.1) Total Bilirubin 0.4 mg/dL (0.2-1.0) Aspartate Amino Transferase (AST) 14 U/L (15-37) L Alanine Aminotransferase (ALT) 15 U/L (14-59) Alkaline Phosphatase 68 U/L (46-116) Total Protein 7.0 g/dL (6.4-8.2) Albumin 2.9 g/dL (3.4-5.0) L Albumin/Globulin Ratio 0.7 (1.0-1.7) L Laboratory Tests 05/26/19 13:55 Laboratory Tests 05/26/19 13:55 (ZAIRA KELLEY APRN) EKG EKG [] (ZAIRA KELLEY APRN) Radiology/Procedures Radiology/Procedures [] (ZAIRA KELLEY APRN) Radiology/Procedures Indication: Joint dislocation, right distal RADIUS FRACTURE WITH SEVERE DISPLACEMENT. Consent: Consent was obtained. Procedure: The pre-reduction exam showed distal perfusion and neurologic function to be normal.. The patient was placed in the appropriate position. Anesthesia/pain control SEDATION WITH PROPOFOL. Reduction of the RIGHT WRIST was performed by TRACTION, MANIPULATION. Post reduction films were obtained and revealed satisfactory reduction. A post-reduction exam revealed distal perfusion and neurologic function to be normal. The affected area was immobilized with SUGAR TONG, ORTHOGLASS MATERIAL. The patient tolerated the procedure well. Complications: none. (NA JUDGE DO) Impressions: [facility] [address] [place], [place] [id number] IMAGING REPORT Signed PATIENT: CATHERINE SHANKS ACCOUNT: [id number] : 1930 LOCATION: ER AGE: 88 SEX: F EXAM STATUS: REG ER ORD. PHYSICIAN: ZAIRA KELLEY APRN REASON: FALL, WRIST DEFORMITY PROCEDURE: WRIST 3V RIGHT WRIST 3V RIGHT DATE: 05/26/2019 12:49 PM INDICATION: Fall, wrist deformity COMPARISON: None. FINDINGS/ IMPRESSION: Acute comminuted and impacted distal radius fracture. Distal radius fracture fragments are significantly displaced. Radial displacement of the carpal row relative to the distal forearm. Electronically signed by: Mini Calabrese MD (05/26/2019 1:38 PM) [id number] DICTATED and SIGNED BY: MINI CALABRESE MD DATE: 05/26/19 1338 [facility] [address] [place] [address] IMAGING REPORT Signed PATIENT: CATHERINE SHANKS ACCOUNT: [id number] : 1930 LOCATION: ER AGE: 88 SEX: F EXAM STATUS: REG ER ORD. PHYSICIAN: ZAIRA KELLEY APRN REASON: FALL, HIT HEAD PROCEDURE: CT HEAD AND CERVICAL SPINE WO CT HEAD AND CERVICAL SPINE WO Date: 05/26/2019 1:11 PM Clinical Indication: Fell and hit head, pain Comparison: Soft tissue neck radiograph 08/03/2017. Technique: 5 mm axial tomographic images were obtained of the head without contrast. These were viewed on brain and bone windows. Noncontrast CT of the cervical spine was performed. Sagittal and coronal reformats were performed and evaluated. One or more of the following dose reduction techniques were utilized: Automated exposure control (AEC), Adjustment of mA and/or kV according to patient size, Use of iterative reconstruction technique such as ASiR, CT scan done according to ALARA and image gently/image wisely HEAD FINDINGS: Mild generalized cerebral and cerebellar volume loss. Mild nonspecific periventricular hypoattenuation, most commonly seen with chronic small vessel ischemic disease. No intra- or extra-axial mass or fluid collection. No acute hemorrhage. The ventricles are normal in size, shape, and morphology. The rouse-white matter junction is normal. The basilar cisterns are patent. The visualized paranasal sinuses are normal. The visualized portions of the orbits and globes are normal. The mastoid air cells are clear. No aggressive osseous lesion or fracture. CERVICAL SPINE FINDINGS: The cervical spine is normally aligned. No acute fracture. No aggressive lytic or blastic osseous lesions. Moderate multilevel degenerative disc space height loss. Multilevel mild spinal canal stenosis secondary to disc protrusions and marginal osteophytes. Multilevel mild and moderate neuroforaminal narrowing secondary to uncovertebral arthrosis. Multilevel mild and moderate facet arthrosis. Stable prevertebral metallic density at the level of C5. The thyroid gland is normal. No cervical lymphadenopathy. Bilateral carotid atherosclerosis. The visualized aerodigestive tract is normal. The visualized portions of the lungs are clear. IMPRESSION: 1. No acute intracranial process. 2. No acute cervical spine fracture. Electronically signed by: Mini Calabrese MD (05/26/2019 1:34 PM) [id number] DICTATED and SIGNED BY: MINI CALABRESE MD DATE: 05/26/[address] [address] IMAGING REPORT Signed PATIENT: CATHERINE SHANKS ACCOUNT: [id number] : 1930 LOCATION: ER AGE: 88 SEX: F EXAM STATUS: REG ER ORD. PHYSICIAN: ZAIRA KELLEY APRN REASON: FALL, PAIN PROCEDURE: HUMERUS RIGHT HUMERUS RIGHT DATE: 05/26/2019 12:49 PM INDICATION: Fall, pain COMPARISON: None. FINDINGS: Bones: There is no evidence of acute fracture. No joint dislocation is noted. Miscellaneous: Moderate degenerative changes of the glenohumeral and acromioclavicular joints IMPRESSION: No evidence of acute fracture. Electronically signed by: Mini Calabrese MD (05/26/2019 1:40 PM) [id number] DICTATED and SIGNED BY: MINI CALABRESE MD DATE: 05/26/[address] [id number] IMAGING REPORT Signed PATIENT: CATHERINE SHANKS ACCOUNT: [id number] : 1930 LOCATION: ER AGE: 88 SEX: F EXAM STATUS: REG ER ORD. PHYSICIAN: ZAIRA KELLEY APRN REASON: FALL, PAIN PROCEDURE: ELBOW RIGHT 3V ELBOW RIGHT 3V DATE: 05/26/2019 12:49 PM INDICATION: Fall, pain COMPARISON: None. FINDINGS: Bones: There is no evidence of acute fracture or dislocation. Joints: The joint spaces are normal. There is no joint effusion. Miscellaneous: None. IMPRESSION: No evidence of acute fracture. Electronically signed by: Mini Calabrese MD (05/26/2019 1:40 PM) [id number] DICTATED and SIGNED BY: MINI CALABRESE MD DATE: 05/26/19 1340 [facility] [address] [place] [address] IMAGING REPORT Signed PATIENT: CATHERINE SHANKS ACCOUNT: [id number] : 1930 LOCATION: ER AGE: 88 SEX: F EXAM STATUS: REG ER ORD. PHYSICIAN: NA JUDGE DO REASON: right wrist fracture post reduction PROCEDURE: WRIST 3V RIGHT WRIST 3V RIGHT Clinical Indication: Right wrist fracture post reduction. Comparison: Right wrist, 3 views, earlier same day. Findings: The alignment of the comminuted distal radius fracture is improved post reduction. Radial displacement of the distal fracture fragment in the carpal bones is less. Overriding of fracture fragments is decreased. Radial displacement and overriding of fracture fragments of the ulnar styloid fracture is also improved. There is soft tissue swelling of the wrist. No acute fracture of carpal bones is identified. Cast material overlies the wrist. IMPRESSION: Improved alignment of distal radius and ulnar styloid fractures post reduction. Electronically signed by: Arthur Ya MD (05/26/2019 3:45 PM) [id number] DICTATED and SIGNED BY: ARTHUR YA MD DATE: 05/26/19 1545 (ZAIRA KELLEY APRN) Course & Med Decision Making Course & Med Decision Making Pertinent Labs and Imaging studies reviewed. (See chart for details) Patient states that she did not pass out and she does not feel dizzy or lighth eaded. She denies any visual changes, shortness of breath, chest pain, numbness or tingling, abdominal pain, nausea, vomiting, fever, diarrhea, cough. PERRLA. Patient does have a right wrist deformity. She can wiggle her fingers but is very painful. Patient has a small abrasion to the right elbow. Patient does have full range of motion of the right elbow. Patient is very tender to the right wrist and lower radius and ulna. No range of motion in the right wrist. Skin pink warm and dry. Radial pulse strong present. Cap refill less than 3 seconds. Patient has a quarter sized bruise and abrasion to the right forehead. Patient states her last tetanus was less than 5 years ago. Vital signs within normal limits. IMPRESSION: Acute comminuted and impacted distal radius fracture. Distal radius fracture fragments are significantly displaced. Radial displacement of the carpal row relative to the distal forearm. Dr Judge is doing reduction with conscious sedation. See Dr Judge charting. [] (ZAIRA KELLEY APRN) Course & Med Decision Making DISCUSSED WITH DR. LARSEN, AGREED TO SEE PATIENT IN CLINIC THIS WEEK. (NA JUDGE DO) Dragon Disclaimer Dragon Disclaimer This electronic medical record was generated, in whole or in part, using a voice recognition dictation system. (ZAIRA KELLEY APRN) Departure Departure Impression: Primary Impression: Radial fracture Additional Impression: Distal radius fracture, right Disposition: 01 HOME, SELF-CARE Condition: STABLE Referrals: JAIME WOMACK MD (PCP) BERTHA LARSEN II, MD Patient Instructions: Radial Fracture Additional Instructions: Call Dr Larsen office tomorrow to get appointment this coming week. Take medication as prescribed. Drink plenty of fluids. Scripts Hydrocodone/Apap 5-325 (NORCO 5-325 TABLET) 1 Each Tablet 1 TAB PO PRN Q6HRS PRN for PAIN, #10 TAB 0 Refills Prov: ZAIRA KELLEY APRN 05/26/19 Procedural Sedation Proc Sed Indication: [] Consent: I have discussed with the patient and/or the patient patient access representative the indication, alternatives, and the possible risks and /or complications of the planned procedure and the anesthesia methods. The patient and/or patient patient access representative appear to understand and agree to proceed. Pre-Sedation Documentation and Exam: [] Airway Assessment: normal. Prior History of Anesthesia Complications: none. ASA Classification: [] Sedation/ Anesthesia Plan: [] Medications Used: see nursing notes. Monitoring and Safety: The patient was placed on a campus monitor and vital signs, pulse oximetry and level of consciousness were continuously evaluated throughout the procedure. The patient was closely monitored until recovery from the medications was complete and the patient had returned to baseline status. Respiratory therapy was on standby at all times during the procedure. (The following sections must be completed) Post-Sedation Vital Signs: [EDM.VS] Post-Sedation Exam: [] Complications: none. (ZAIRA KELLEY APRN) Proc Sed Indication: RIGHT WRIST FRACTURE WITH SEVERE DISPLACEMENT Consent: I have discussed with the patient and/or the patient patient access representative the indication, alternatives, and the possible risks and /or complications of the planned procedure and the anesthesia methods. The patient and/or patient patient access representative appear to understand and agree to proceed. Pre-Sedation Documentation and Exam: moderate expiratory wheezing, NOT IN ANY RESPIRATORY DISTRESS, awake, alert, oriented to place, time and person....HEART WITH REGULAR RATE AND RHYTHM. Airway Assessment: normal. Prior History of Anesthesia Complications: none. ASA Classification: 3 Sedation/ Anesthesia Plan: IV PROPOFOL Medications Used: see nursing notes. Monitoring and Safety: The patient was placed on a campus monitor and vital signs, pulse oximetry and level of consciousness were continuously evaluated throughout the procedure. The patient was closely monitored until recovery from the medications was complete and the patient had returned to baseline status. Respiratory therapy was on standby at all times during the procedure. (The following sections must be completed) Post-Sedation Vital Signs:SEE NURSE NOTE, SEDATION NOTES] Post-Sedation Exam: Patient was awake, alert, oriented back to baseline. Complications: none. Vital Signs Vital Signs Date Time Temp Pulse Resp B/P (MAP) Pulse Ox O2 Delivery O2 Flow Rate FiO2 05/26/19 16:32 80 16 95 05/26/19 14:55 98.2 140/66 2.0 98.2 2.0 98.2 2.0 97.9 2.0 98.5 2.0 2.0 05/26/19 13:40 Nasal Cannula (NA JUDGE DO) Problem Qualifiers Primary Impression: Radial fracture Encounter type: initial encounter Radius location: distal Fracture type: closed Fracture morphology: unspecified fracture morphology Laterality: right Qualified Codes: S52.501A - Unspecified fracture of the lower end of right radius, initial encounter for closed fracture ZAIRA KELLEY APRN May 26, 2019 13:00 NA JUDGE DO May 26, 2019 16:42
--- NOTE | 2019-05-26 13:37 | RAD ---
CT HEAD AND CERVICAL SPINE WO Date: 05/26/2019 1:11 PM Clinical Indication: Fell and hit head, pain Comparison: Soft tissue neck radiograph 08/03/2017. Technique: 5 mm axial tomographic images were obtained of the head without contrast. These were viewed on brain and bone windows. Noncontrast CT of the cervical spine was performed. Sagittal and coronal reformats were performed and evaluated. One or more of the following dose reduction techniques were utilized: Automated exposure control (AEC), Adjustment of mA and/or kV according to patient size, Use of iterative reconstruction technique such as ASiR, CT scan done according to ALARA and image gently/image wisely HEAD FINDINGS: Mild generalized cerebral and cerebellar volume loss. Mild nonspecific periventricular hypoattenuation, most commonly seen with chronic small vessel ischemic disease. No intra- or extra-axial mass or fluid collection. No acute hemorrhage. The ventricles are normal in size, shape, and morphology. The rouse-white matter junction is normal. The basilar cisterns are patent. The visualized paranasal sinuses are normal. The visualized portions of the orbits and globes are normal. The mastoid air cells are clear. No aggressive osseous lesion or fracture. CERVICAL SPINE FINDINGS: The cervical spine is normally aligned. No acute fracture. No aggressive lytic or blastic osseous lesions. Moderate multilevel degenerative disc space height loss. Multilevel mild spinal canal stenosis secondary to disc protrusions and marginal osteophytes. Multilevel mild and moderate neuroforaminal narrowing secondary to uncovertebral arthrosis. Multilevel mild and moderate facet arthrosis. Stable prevertebral metallic density at the level of C5. The thyroid gland is normal. No cervical lymphadenopathy. Bilateral carotid atherosclerosis. The visualized aerodigestive tract is normal. The visualized portions of the lungs are clear. IMPRESSION: 1. No acute intracranial process. 2. No acute cervical spine fracture. Electronically signed by: Talha Calabrese MD (05/26/2019 1:34 PM) [id number]
--- NOTE | 2019-05-26 13:41 | RAD ---
WRIST 3V RIGHT DATE: 05/26/2019 12:49 PM INDICATION: Fall, wrist deformity COMPARISON: None. FINDINGS/ IMPRESSION: Acute comminuted and impacted distal radius fracture. Distal radius fracture fragments are significantly displaced. Radial displacement of the carpal row relative to the distal forearm. Electronically signed by: Talha Calabrese MD (05/26/2019 1:38 PM) [id number]
--- NOTE | 2019-05-26 13:43 | RAD ---
HUMERUS RIGHT DATE: 05/26/2019 12:49 PM INDICATION: Fall, pain COMPARISON: None. FINDINGS: Bones: There is no evidence of acute fracture. No joint dislocation is noted. Miscellaneous: Moderate degenerative changes of the glenohumeral and acromioclavicular joints IMPRESSION: No evidence of acute fracture. Electronically signed by: Talha Calabrese MD (05/26/2019 1:40 PM) [id number]
--- NOTE | 2019-05-26 13:43 | RAD ---
ELBOW RIGHT 3V DATE: 05/26/2019 12:49 PM INDICATION: Fall, pain COMPARISON: None. FINDINGS: Bones: There is no evidence of acute fracture or dislocation. Joints: The joint spaces are normal. There is no joint effusion. Miscellaneous: None. IMPRESSION: No evidence of acute fracture. Electronically signed by: Talha Calabrese MD (05/26/2019 1:40 PM) [id number]
[2019-05-26 14:10] LABS: BASO % 1 % (0-3); EOS # 0.2 x10^3/uL (0.0-0.7); EOS % 3 % (0-3); HEMATOCRIT 34.4 % (36.0-47.0); HEMOGLOBIN 10.9 g/dL (12.0-15.5); LYMPH # 0.8 x10^3/uL (1.0-4.8); LYMPH % 11 % (24-48); MEAN CORPUSCULAR HEMOGLOBIN 23 pg (25-35); MEAN CORPUSCULAR HGB CONC 32 g/dL (31-37); MEAN CORPUSCULAR VOLUME 74 fL (79-100); MONO # 0.5 x10^3/uL (0.0-1.1); MONO % 7 % (0-9); NEUT % 80 % (31-73); PLATELET COUNT 224 x10^3/uL (140-400); RED BLOOD COUNT 4.66 x10^6/uL (3.50-5.40); RED CELL DISTRIBUTION WIDTH 17.8 % (11.5-14.5); WHITE BLOOD COUNT 7.5 x10^3/uL (4.0-11.0)
[2019-05-26 14:28] LABS: CALCIUM 8.8 mg/dL (8.5-10.1); CREATININE 0.8 mg/dL (0.6-1.0); POTASSIUM 3.9 mmol/L (3.5-5.1)
[2019-05-26 14:33] LABS: ALBUMIN 2.9 g/dL (3.4-5.0); ALBUMIN/GLOBULIN RATIO 0.7 (1.0-1.7); TOTAL BILIRUBIN 0.4 mg/dL (0.2-1.0)
[2019-05-26] MEDS ORDERED: PROPOFOL 10 MG/ML (20ML) VIAL. IV ONE (14:45)
[2019-05-26 14:55] VITALS: BP 140/66
[2019-05-26 15:32] LABS: PROTHROMBIN TIME PATIENT 16.4 SEC (11.7-14.0)
--- NOTE | 2019-05-26 15:48 | RAD ---
WRIST 3V RIGHT Clinical Indication: Right wrist fracture post reduction. Comparison: Right wrist, 3 views, earlier same day. Findings: The alignment of the comminuted distal radius fracture is improved post reduction. Radial displacement of the distal fracture fragment in the carpal bones is less. Overriding of fracture fragments is decreased. Radial displacement and overriding of fracture fragments of the ulnar styloid fracture is also improved. There is soft tissue swelling of the wrist. No acute fracture of carpal bones is identified. Cast material overlies the wrist. IMPRESSION: Improved alignment of distal radius and ulnar styloid fractures post reduction. Electronically signed by: Arthur Ya MD (05/26/2019 3:45 PM) [id number]
[2019-05-26 16:43] VITALS: BP 128/66
[2019-05-26] MEDS ORDERED: HYDR-3164 PO (16:48)
== END 2019-05-26 17:10 | disposition home or self-care (01) ==
LOC: ER 12:26
DX: S52.501A Unspecified fracture of the lower end of right radius, initial encounter for closed fracture (principal); S00.83XA Contusion of other part of head, initial encounter; S50.311A Abrasion of right elbow, initial encounter; J44.9 Chronic obstructive pulmonary disease, unspecified; I11.0 Hypertensive heart disease with heart failure; I50.9 Heart failure, unspecified; I48.91 Unspecified atrial fibrillation; W01.0XXA Fall on same level from slipping, tripping and stumbling without subsequent striking against object, initial encounter; Y93.89 Activity, other specified; Y92.89 Other specified places as the place of occurrence of the external cause; Y99.8 Other external cause status
CPT/HCPCS: 25605; 36415; 70450; 72125; 73060; 73080; 73110; 80053; 85025; 85610; 99285; J2704; J3010

== ENCOUNTER → 2020-04-09 | Outpatient (CLI) | payer MEDICARE ==
[~2020-04-09] MED LIST changes: +ALBU0.63 NEB; -ASPI-612 PO; +ASPI-886 PO; -CALC600T4 PO; +CALC600T6 PO; +HYDR-3164 PO; +ROPI0.254 PO; +TRAZ-118 PO
== END ==
LOC: LAB 09:59
PROVIDERS: ATTEND Surgery
DX: Z01.812 Encounter for preprocedural laboratory examination (principal); Z20.822 Contact with and (suspected) exposure to COVID-19
CPT/HCPCS: U0003

== ENCOUNTER 2020-04-13 07:46 | Day surgery (SDC) | payer MEDICARE ==
[~2020-04-13] VITALS: Ht 154.9 cm; Wt 82.0 kg
[~2020-04-13 07:46] MED LIST changes: +HYDROmorphone 2 MG/ML VIAL IVP PRN; +IV RINGERS,LACTATED 1000ML 1,000 ML IV SCH; +MORPHINE SULFATE 2 MG/ML VIAL. IVP PRN; +PROCHLORPERAZINE 10 MG/2 ML VIAL. IVP PRN; +fentaNYL PF VIAL 100 MCG/2 ML VIAL IVP PRN
[2020-04-13] MEDS ORDERED: BUPIVACAINE-EPI 0.5% 30 ML VIAL KIT. ONE (08:59)
[2020-04-13] MEDS ORDERED: fentaNYL PF VIAL 100 MCG/2 ML VIAL ONE ×2 (09:11→10:30)
[2020-04-13] MEDS ORDERED: PROPOFOL 10 MG/ML (20ML) VIAL. IV ONE (09:11)
[2020-04-13] MEDS ORDERED: DEXAMETHASONE SOD PHOS 4 MG/ML VIAL ONE (09:11)
[2020-04-13] MEDS ORDERED: LIDOCAINE 2% PF 5 ML VIAL. ONE (09:11)
[2020-04-13] MEDS ORDERED: ONDANSETRON PF 4 MG/2 ML VIAL. ONE (09:11)
--- NOTE | 2020-04-13 09:46 | PDOC ---
SURGICAL PROGRESS NOTE DATE: 04/13/20 TIME: 09:45 Subjective 89 yo F with multiple (5) basal cell carcinoma LLE TO OR for excisional biopsy. R/R/B/A d/w pt and pt's supportive daughter. Office note H&P reviewed and unchanged. Vital Signs Vital Signs Date Time Temp Pulse Resp B/P (MAP) Pulse Ox O2 Delivery O2 Flow Rate FiO2 04/13/20 08:23 98.0 88 20 140/69 98 Room Air 98.0 Justicifation of Admission Dx: Justifications for Admission: Justification of Admission Dx: N/A MONICA FRAGA MD Apr 13, 2020 09:46
[2020-04-13] MEDS: fentaNYL PF VIAL 100 MCG/2 ML VIAL IVP PRN ×2 (10:40→10:50)
[2020-04-13] MEDS ORDERED: traMADol 50 MG TABLET PO ONE (11:15)
[2020-04-13 11:21] VITALS: BP 138/67
--- NOTE | 2020-04-13 12:15 | PDOC4 ---
OPERATIVE NOTE Date: Date: Apr 13, 2020 Pre-Op Diagnosis: basal cell cancer of LLE Post-Op Diagnosis: same Procedure Performed: excisional biopsy of multiple skin lesions of left lower leg. Each biopsy site approximately 2 cm in diameter. 1-Lateral anterior superior 2-Lateral anterior inferior 3-Posterior lateral middle 4-Mid medial posterior 5-medial malleolus Surgeon: Conor Fraga Anesthesia Type: GETA plus local Blood Loss: 5 Specimans Obtained: as listed above. Findings: skin lesions as above, marked with patient in preop. Complications: none Operative Note: After obtaining informed, patient was taken to OR, induced under GETA and prepped in the usual fashion over lower leg. Each site listed above was excised with cautery with adequate margins of visualized skin ulcerations. Specimens sent to pathology. Hemostasis obtained with cautery. Skin was then repaired with multiple 2 0 nylons. Dressing applied and SHREYA wraps. Patient tolerated procedure well and sent to PACU in stable condition. All counts correct. Wound class is 2. MONICA FRAGA MD Apr 13, 2020 12:15
--- NOTE | 2020-04-16 09:08 | PATHOLOGY ---
[facility] Accession Number: [id number] . 01 Material submitted: . PART A: leg - LEFT LOWER LEG-LEFT SUPERIOR INFERIOR. Modifiers: left, lower, superior PART B: leg - LEFT LOWER LEG-ANTERIOR INFERIOR. Modifiers: left, lower, inferior PART C: leg - LEFT LOWER LEG-POSTERIOR INFERIOR. Modifiers: left, lower, posterior PART D: leg - LEFT LOWER LEG-MID MEDIAL. Modifiers: left, lower, medial PART E: leg - LEFT LOWER LEG-MEDIAL MALLEOLUS. Modifiers: left, lower . 01 Clinical history: . BCC . 02 Diagnosis: A. Skin and subcutaneous tissue, superior inferior left lower leg: - Actinic keratosis. . B. Skin and subcutaneous tissue, anterior inferior left lower leg: - BASAL CELL CARCINOMA, INVOLVING AN INKED HISTOLOGIC SIDE MARGIN AND ONE OF THE TIP MARGINS OF EXCISION; DEEP MARGIN RESECTION NEGATIVE FOR TUMOR. . C. Skin and subcutaneous tissue, posterior inferior left lower leg: - Actinic keratosis. . D. Skin and subcutaneous tissue, mid medial left lower leg: - BASAL CELL CARCINOMA, INVOLVING BOTH INKED SIDE MARGINS OF EXCISION; DEEP MARGIN RESECTION NEGATIVE FOR TUMOR. . E. Skin and subcutaneous tissue, medial malleolus left lower leg: - BASAL CELL CARCINOMA, FOCALLY INVOLVING AN INKED SIDE MARGIN OF EXCISION; DEEP MARGIN OF RESECTION NEGATIVE FOR TUMOR. . (JPM:ezio; 04/15/2020) MBR 04/15/2020 1816 Local . 02 Electronically signed: . Marck Reynolds MD, Pathologist NPI- [id number] . 01 Gross description: . A. The specimen is received in formalin, labeled "Estephania Nithanhls, left superior inferior". Received is an ellipse of skin measuring 1.8 x 1.0 x 0.7 cm in greatest dimensions. The epidermal surface displays a poorly circumscribed, flat, glistening and pale espinoza lesion measuring 1.0 x 0.9 cm. The surgical margin is inked. The specimen is sectioned into five pieces and entirely submitted in cassettes A1 and A2, with the tips placed in cassette A2. . B. The specimen is received in formalin, labeled "Estephania Nitchals, anterior inferior". Received is an ellipse of skin measuring 1.8 x 1.3 x 0.8 cm in greatest dimensions. The epidermal surface a poorly circumscribed, irregular in contour and pale pink to pink-red lesion measuring 1.1 x 0.9 cm. The surgical margin is inked. The specimen is sectioned into six pieces and entirely submitted in cassettes B1 and B2, with the tips placed in cassette B2. . C. The specimen is received in formalin, labeled "Estephania Nitchals, posterior inferior". Received is an ellipse of skin measuring 1.5 x 0.6 x 0.5 cm in greatest dimensions. The epidermal surface displays a poorly circumscribed, flat, flaky and pale espinoza lesion measuring 0.4 x 0.3 cm. The surgical margin is inked. The specimen is sectioned into five pieces and entirely submitted in cassettes C1 and C2, with the tips placed in cassette C2. . D. The specimen is received in formalin, labeled "Estephania Nitchals, mid medial". Received is an ellipse of skin measuring 1.8 x 0.9 x 0.6 cm in greatest dimensions. The epidermal surface displays a well-circumscribed, depressed and pale espinoza lesion measuring 0.3 x 0.3 cm. The surgical margin is inked. The specimen is sectioned into six pieces and entirely submitted in cassettes D1 and D2, with the tips placed in cassette D2. . E. The specimen is received in formalin, labeled "Estephania Nitchals, medial malleolus". Received is an ellipse of skin measuring 1.5 x 1.1 x 0.5 cm in greatest dimensions. The epidermal surface displays a poorly circumscribed, flat and pink-espinoza lesion measuring 0.9 x 0.8 cm. The surgical margin is inked. The specimen is sectioned into six pieces and entirely submitted in cassettes E1 and E2, with the tips placed in cassette E2. (CAA; 04/14/2020) QAC/QAC 04/14/2020 1543 Local . 02 Pathologist provided ICD-10: C44.719, L57.0 . 02 CPT . 018540, 565111, 256681, 108570, 267279 Specimen Comment: A courtesy copy of this report has been sent to [phone] Specimen Comment: Report sent to / Performed at: 01 [facility] [address], [place] [id number] MD Gordy Dunaway MD Phone: [phone] Performed at: 02 [facility] [address] [place], [place] [id number] MD Marck Reynolds MD Phone: [phone]
== END 2020-04-13 11:55 | disposition home or self-care (01) ==
LOC: SURG 07:46
PROVIDERS: ATTEND Surgery
DX: C44.719 Basal cell carcinoma of skin of left lower limb, including hip (principal); L57.0 Actinic keratosis; I50.9 Heart failure, unspecified; E78.00 Pure hypercholesterolemia, unspecified; J44.9 Chronic obstructive pulmonary disease, unspecified; G47.30 Sleep apnea, unspecified; M19.90 Unspecified osteoarthritis, unspecified site; Z85.828 Personal history of other malignant neoplasm of skin; Z79.899 Other long term (current) drug therapy; Z90.710 Acquired absence of both cervix and uterus; Z98.890 Other specified postprocedural states; Z80.3 Family history of malignant neoplasm of breast; Z82.49 Family history of ischemic heart disease and other diseases of the circulatory system
CPT/HCPCS: 11602; J0690; J1100; J2405; J2704; J3010

== ENCOUNTER → 2020-05-07 | Outpatient (CLI) | payer MEDICARE ==
[2020-04-13 11:21] VITALS: BP 138/67
[~2020-05-07] MED LIST changes: +FERR-36 PO; -HYDROmorphone 2 MG/ML VIAL IVP PRN; -IV RINGERS,LACTATED 1000ML 1,000 ML IV SCH; -MORPHINE SULFATE 2 MG/ML VIAL. IVP PRN; -PROCHLORPERAZINE 10 MG/2 ML VIAL. IVP PRN; -fentaNYL PF VIAL 100 MCG/2 ML VIAL IVP PRN
== END ==
LOC: LAB 09:48
PROVIDERS: ATTEND Surgery
DX: Z01.812 Encounter for preprocedural laboratory examination (principal); C44.91 Basal cell carcinoma of skin, unspecified; Z20.822 Contact with and (suspected) exposure to COVID-19
CPT/HCPCS: U0003

== ENCOUNTER 2020-05-11 09:38 | Day surgery (SDC) | payer MEDICARE ==
[~2020-05-11 09:38] MED LIST changes: +IV RINGERS,LACTATED 1000ML 1,000 ML IV SCH; +PROCHLORPERAZINE 10 MG/2 ML VIAL. IVP PRN; +fentaNYL PF VIAL 100 MCG/2 ML VIAL IVP PRN
[2020-05-11] MEDS ORDERED: LIDOCAINE 4% KIT 4 ML SOLUTION. TP ONE (10:24)
[2020-05-11] MEDS ORDERED: PROPOFOL 10 MG/ML (20ML) VIAL. IV ONE (10:24)
[2020-05-11] MEDS ORDERED: fentaNYL PF VIAL 100 MCG/2 ML VIAL ONE ×2 (10:24→12:23)
[2020-05-11] MEDS ORDERED: BUPIVACAINE-EPI 0.5% 30 ML VIAL KIT. ONE (11:16)
--- NOTE | 2020-05-11 11:41 | PDOC ---
SURGICAL PROGRESS NOTE DATE: 05/11/20 TIME: 11:39 Subjective Pre-Op Note 89 yo F with 3 x basal cell cancers on LLE. Sites marked with pt in preop. Lower medial wound is open, but clean R/R/B/A d/w pt and pt's family. Risks, including, but not limited to: bleeding, infection, damage to surrounding structures, risk of anesthesia. They appear to understand, their questions are answered and they elect to proceed. Office note H&P reviewed and unchanged. Vital Signs Vital Signs Date Time Temp Pulse Resp B/P (MAP) Pulse Ox O2 Delivery O2 Flow Rate FiO2 05/11/20 10:00 97.5 94 20 132/77 99 Room Air 97.5 Justicifation of Admission Dx: Justifications for Admission: Justification of Admission Dx: N/A MONICA FRAGA MD May 11, 2020 11:41
[2020-05-11] MEDS ORDERED: ONDANSETRON PF 4 MG/2 ML VIAL. ONE (12:08)
[2020-05-11] MEDS ORDERED: SEVOFLURANE 31 TO 60 MINUTES. IH ONE (12:08)
[2020-05-11] MEDS ORDERED: PROCHLORPERAZINE 10 MG/2 ML VIAL. ONE (12:28)
[2020-05-11] MEDS ORDERED: MORPHINE SULFATE 2 MG/ML VIAL. ONE (12:33)
[2020-05-11] MEDS: fentaNYL PF VIAL 100 MCG/2 ML VIAL IVP PRN ×2 (12:35→12:54)
[2020-05-11] MEDS: MORPHINE SULFATE 2 MG/ML VIAL. IVP PRN ×2 (12:36→12:56)
[2020-05-11] MEDS ORDERED: HYDROmorphone 2 MG/ML VIAL ONE (12:47)
[2020-05-11] MEDS: HYDROmorphone 2 MG/ML VIAL IVP PRN ×2 (12:55→13:55)
[2020-05-11] MEDS ORDERED: oxyCODONE/APAP 5/325 1 TAB TABLET PO ONE (13:15)
[2020-05-11] MEDS ORDERED: oxyCODONE/APAP 5/325 1 TAB TABLET ONE (13:15)
--- NOTE | 2020-05-11 13:44 | PDOC4 ---
OPERATIVE NOTE Date: Date: May 11, 2020 Pre-Op Diagnosis: LLE basal cell carcinoma x 3 Post-Op Diagnosis: same Procedure Performed: Excisional biopsy and wider excision of 3 x basal cell cancer of LLE Surgeon: Conor Fraga Anesthesia Type: GETA plus local Blood Loss: 50 Specimans Obtained: 1) Medical inferior 2) Medial superior 3) Lateral Complications: none Operative Note: After obtaining informed consent, patient was taken to OR, induced under GETA and prepped in the usual fashion over LLE. 2 x superior sites identified and appeared healed. Sutures removed. Medial inferior site overlying medial malleolus was open. The wound edge was excised, including deep margin and sent to pathology. Superior medial site was intact with sutures and reexcised with cautery. Lateral site was intact with sutures and reexcised with cautery. These were both sent to pathology. Wounds were then obtained with hemostasis with cautery. Wounds then were closed loosely with 2 0 nylon. Compression dressing placed. Patient tolerated procedure well and sent to PACU in stable condition. All counts correct. Wound class is dirty (open wound). MONICA FRAGA MD May 11, 2020 13:44
[2020-05-11 13:45] VITALS: BP 134/54
--- NOTE | 2020-05-13 17:15 | PATHOLOGY ---
[facility] Accession Number: [id number] . 01 Material submitted: . PART A: leg - MEDIAL INFERIOR LEFT LOWER LEG. Modifiers: left, lower, medial PART B: leg - LATERAL LEFT LOWER LEG. Modifiers: left, lower, lateral PART C: leg - SUPERIOR MEDIAL LEFT LOWER LEG. Modifiers: left, lower, superior . 01 Clinical history: . BASAL CELL CARCINOMA RE-EXCISION OF THREE BASAL CANCER LESIONS OF LEFT LOWER EXTREMITY . 02 Diagnosis: A. Skin and subcutaneous tissue, medial inferior left lower leg: - Previous biopsy site showing ulceration, granulation tissue, acute and chronic inflammation, and focal foreign body giant cell reaction - no residual basal cell carcinoma identified. . B. Skin and subcutaneous tissue, lateral left lower leg: - Focal residual superficial and infiltrating basal cell carcinoma - inked margins of excision free of neoplasm. - Previous biopsy site showing focal ulceration, granulation tissue, acute and chronic inflammation, fibrosis, and focal foreign body giant cell reaction. . C. Skin and subcutaneous tissue, superior medial left lower leg: - Previous biopsy site showing focal ulceration, granulation tissue, acute and chronic inflammation, fibrosis, and focal foreign body giant cell reaction - no residual basal cell carcinoma identified. (JPM:kimberlyn; 05/13/2020) S 05/13/2020 1619 Local . 02 Electronically signed: . Marck Reynolds MD, Pathologist NPI- [id number] . 01 Gross description: . A. The specimen is received in formalin, labeled "Estephania Nitchals, medial inferior". The specimen is additionally labeled on the requisition as, "medial inferior left lower leg". Received is a curved ellipse of pale espinoza skin measuring 5.5 x 0.6 x 0.4 cm in greatest dimensions. The epidermal surface is pale espinoza and grossly unremarkable. The surgical margin is inked. The specimen is sectioned into 14 pieces and entirely submitted in cassettes A1 through A4, with the tips placed in cassette A4. . B. The specimen is received in formalin, labeled "Estephania Nitchals, lateral". The specimen is additionally labeled on the requisition as, "lateral left lower leg". Received is an irregular excision of rouse-brown, ragged possible skin with attached underlying soft tissue measuring 2.4 x 1.5 x 1 0 cm in greatest dimensions. The apparent surgical margin is inked. The specimen is sectioned into eight pieces and entirely submitted in cassettes B1 through B3. Due to the nature of the lesion, fragmentation may occur upon processing. . C. The specimen is received in formalin, labeled "Estephania Nitchals, superior medial". The specimen is additionally labeled on the requisition as, "superior medial left lower leg". Received is an irregular, ragged excision of pale espinoza to rouse-brown skin measuring 2.7 x 0.9 x 0.5 cm in greatest dimensions. The surgical margin is inked. The specimen is sectioned into nine pieces and entirely submitted in cassettes C1 through C3, with the tips placed in cassette C3. Due to the nature of the specimen, fragmentation has occurred upon sectioning. (CAA; 05/12/2020) QAC/QAC 05/13/2020 1450 Local . 02 Pathologist provided ICD-10: L97.929, L98.9, C44.719, L90.5 . 02 CPT . 353863, 727712, 137087 Specimen Comment: A courtesy copy of this report has been sent to [phone] Specimen Comment: [id number] Specimen Comment: Report sent to / DR WOMACK Performed at: 01 [facility] [address], [place] [id number] MD Gordy Dunaway MD Phone: [phone] Performed at: 02 [facility] [address] [place], [place] [id number] MD Marck Reynolds MD Phone: [phone]
== END 2020-05-11 13:04 | disposition home or self-care (01) ==
LOC: SURG 09:38
PROVIDERS: ATTEND Surgery
DX: C44.719 Basal cell carcinoma of skin of left lower limb, including hip (principal); L90.5 Scar conditions and fibrosis of skin; L98.9 Disorder of the skin and subcutaneous tissue, unspecified; L97.929 Non-pressure chronic ulcer of unspecified part of left lower leg with unspecified severity; I50.9 Heart failure, unspecified; I48.91 Unspecified atrial fibrillation; J44.9 Chronic obstructive pulmonary disease, unspecified; E66.9 Obesity, unspecified; M19.90 Unspecified osteoarthritis, unspecified site; Z90.710 Acquired absence of both cervix and uterus; Z98.890 Other specified postprocedural states; Z79.899 Other long term (current) drug therapy; Z87.440 Personal history of urinary (tract) infections
CPT/HCPCS: 11603; 11606; 88305; A4930; A6223; A6402; A6450; J0690; J0780; J1170; J2270; J2405; J2704; J3010

== ENCOUNTER → 2020-06-10 | Outpatient (CLI) | payer MEDICARE ==
[2020-05-11 13:45] VITALS: BP 134/54
[~2020-06-10] MED LIST changes: -CALC600T6 PO; +CALC600T60 PO; -IV RINGERS,LACTATED 1000ML 1,000 ML IV SCH; -PROCHLORPERAZINE 10 MG/2 ML VIAL. IVP PRN; -fentaNYL PF VIAL 100 MCG/2 ML VIAL IVP PRN
--- NOTE | 2020-06-10 09:33 | RAD ---
EXAM: Lower extremity arterial Doppler sonogram with ankle-brachial indices (TRICE). HISTORY: Nonhealing leg ulcers. Peripheral vascular disease. Atherosclerosis. TECHNIQUE: Doppler sonographic evaluation of the lower extremities was performed and pressure reading s were assessed. FINDINGS: Right brachial pressure: 132 mmHg Left brachial pressure: 135 mmHg Left ankle pressure: 125 mmHg Left TRICE: 0.92 There are biphasic and triphasic waveforms and normal peak systolic velocities throughout the left lo wer extremity arteries. No hemodynamically significant stenosis or arterial occlusion is seen. IMPRESSION: 1. Normal left ankle-brachial index. 2. No Doppler evidence of hemodynamically significant stenosis or occlusion involving the left lower extremity arteries. Electronically signed by: Meredith Copeland MD (06/10/2020 9:30 AM) [id number]
== END ==
LOC: US 08:22
PROVIDERS: ATTEND Preventive Medicine Undersea and Hyperbaric Medicine
DX: L97.829 Non-pressure chronic ulcer of other part of left lower leg with unspecified severity (principal); M79.605 Pain in left leg
CPT/HCPCS: 93922; 93926

== ENCOUNTER → 2020-09-03 | Outpatient (CLI) | payer MEDICARE ==
--- NOTE | 2020-09-03 15:38 | KCIC ---
EXAM: Cervical spine MRI without contrast. HISTORY: Radiculopathy. TECHNIQUE: Multiplanar, multisequence magnetic resonance imaging of the cervical spine was performed without contrast. COMPARISON: None. FINDINGS: There is noninstrumented fusion with bony bridging across the disc space at C5-C6. There is mild multilevel degenerative listhesis. There is degenerative endplate remodeling with disc space na rrowing and osteophytosis at multiple levels. There are several small endplate Schmorl's nodes. There are few osseous hemangiomas, the largest of which is seen within C7. There is no fracture or suspici ous osseous lesion. There is deformation of the spinal cord at multiple levels. No spinal cord signal abnormality is seen to suggest myelomalacia or edema. There is signal change within the sree, most c ommonly due to chronic small vessel disease in patients of this age. At C2-C3, there is mild bilateral facet arthropathy. There is no stenosis. At C3-C4, there is a disc bulge and endplate osteophytosis. There is moderate bilateral facet arthrop athy. There is uncovertebral arthropathy. There is deformation of the ventral aspect of the spinal co rd and mild central canal stenosis measuring 7.9 mm in anterior posterior dimension. At C4-C5, there is a disc bulge and endplate osteophytosis. There is moderate right greater than left facet arthropathy. There is uncovertebral arthropathy. There is moderate right foraminal stenosis. T here is flattening of the ventral aspect of spinal cord and minimal central canal stenosis measuring 9.4 mm in anterior posterior dimension. At C5-C6, there is nondistended fusion with bony bridging. There is no stenosis. At C6-C7, there is a disc bulge and endplate osteophytosis. There is mild bilateral facet arthropathy . There is uncovertebral arthropathy. There is moderate left foraminal stenosis. There is flattening of the ventral aspect of the spinal cord and mild central canal stenosis measuring 8.3 mm in anterior posterior dimension. IMPRESSION: 1. Multilevel degenerative change involving the cervical spine, described in detail above. This is as sociated with mild central canal stenosis at C3-C4, moderate right foraminal and minimal central jovanny l stenosis at C4-C5 and moderate left foraminal and mild central canal stenosis at C6-C7. 2. Noninstrumented fusion at C5-C6. Electronically signed by: Meredith Copeland MD (09/03/2020 3:36 PM) [id number]
== END ==
LOC: KCIC MRI 13:40
PROVIDERS: ATTEND Physician Assistant Surgical
DX: M47.22 Other spondylosis with radiculopathy, cervical region (principal); M48.02 Spinal stenosis, cervical region; I73.9 Peripheral vascular disease, unspecified; D18.09 Hemangioma of other sites
CPT/HCPCS: 72141